=== PATIENT | female | born 1980 | race African-American/Black ===

== ENCOUNTER 2017-03-31 06:21 | Emergency (ER) | payer BC, OTHER ==
[2017-03-31 06:29] VITALS: BP 130/87
--- NOTE | 2017-03-31 06:55 | ER Document Report ---
ED Respiratory Problem - General Mode of Arrival: Ambulatory Information source: Patient TRAVEL OUTSIDE OF THE [place] IN LAST 30 DAYS: No - HPI Patient complains to provider of: Short of breath Associated symptoms: Other - See above <KARLEE TENA - Last Filed: 03/31/17 07:05> <ADA ARIAS - Last Filed: 03/31/17 09:25> - General Chief Complaint: Shortness Of Breath Stated Complaint: SHORTNESS OF BREATH Time Seen by Provider: 03/31/17 06:46 Notes: Patient is a 37 year old female, with a past medical history including asthma, who presents to the emergency department complaining of shortness of breath. Patient reports that she has had a cough and some congestion for the past 3 days and has felt increasing shortness of breath. Patient also complains of chest pressure and discomfort. Patient denies wheezing. Patient states she took a breathing treatment at 0500 this morning with no relief. Patient uses her inhaler and nebulizer at home and the Depo shot for control. (KARLEE TENA) - Related Data Allergies/Adverse Reactions: theophylline anhydrous [From Aramis-Dur] Allergy (Verified 06/10/15 13:33) Past Medical History - General Information source: Patient - Social History Smoking Status: Never Smoker Family History: Reviewed & Not Pertinent, DM, Hypertension, Other - Diabetes, CHF, Patient has suicidal ideation: No Patient has homicidal ideation: No Pulmonary Medical History: Reports: Hx Asthma Past Surgical History: Reports: Hx Urinary Tract Surgery - Immunizations Hx Diphtheria, Pertussis, Tetanus Vaccination: Yes <KARLEE TENA - Last Filed: 03/31/17 07:05> Review of Systems - Review of Systems Constitutional: No symptoms reported EENT: No symptoms reported Cardiovascular: See HPI, Chest pain Respiratory: See HPI, Cough, Short of breath, Other - congestion. denies: Wheezing Gastrointestinal: No symptoms reported Genitourinary: No symptoms reported Female Genitourinary: No symptoms reported Musculoskeletal: No symptoms reported Skin: No symptoms reported Hematologic/Lymphatic: No symptoms reported Neurological/Psychological: No symptoms reported -: Yes All other systems reviewed and negative <KARLEE TENA - Last Filed: 03/31/17 07:05> Physical Exam - Vital signs Interpretation: Tachycardic - General General appearance: Appears well, Alert - HEENT Head: Normocephalic, Atraumatic - Respiratory Chest status: Tender - Anterior chest wall tender to palpation, left worse than right Breath sounds: Normal Chest palpation: Normal - Cardiovascular Rhythm: Tachycardia Heart sounds: Normal auscultation Murmur: No - Back Back: Normal, Nontender - Extremities General upper extremity: Normal inspection General lower extremity: Normal inspection - Neurological Neuro grossly intact: Yes Cognition: Normal Orientation: AAOx4 [place] Coma Scale Eye Opening: Spontaneous [place] Coma Scale Verbal: Oriented Lori Coma Scale Motor: Obeys Commands Lori Coma Scale Total: 15 Speech: Normal - Psychological Associated symptoms: Normal affect, Normal mood - Skin Skin Temperature: Warm Skin Moisture: Dry Skin Color: Normal <KARLEE TENA - Last Filed: 03/31/17 07:05> <ADA ARIAS - Last Filed: 03/31/17 09:25> - Vital signs Vitals: Temp Pulse Resp BP Pulse Ox 98.3 F 118 H 18 130/87 H 99 03/31/17 06:25 03/31/17 06:25 03/31/17 06:25 03/31/17 06:25 03/31/17 06:25 Course <KARLEE TENA - Last Filed: 03/31/17 07:05> - Laboratory Result Diagrams: 03/31/17 07:49 03/31/17 07:49 - Diagnostic Test Radiology reviewed: Image reviewed, Reports reviewed - Chest x-ray is unremarkable - EKG Interpretation by Wi EKG shows normal: Sinus rhythm, [place], Intervals, QRS Complexes, ST-T Waves Rate: Tachycardia - 104 <ADA ARIAS - Last Filed: 03/31/17 09:25> - Re-evaluation Re-evalutation: 03/31/17 09:24 Does not appear to be short of breath at this time. She does have some nasal sinus congestion. She does report her cough is been keeping her from sleeping. She had been taking Tessalon Perles for her cough but ran out. She has not been on prednisone and quite some time for asthma. Her chest x-ray is normal. D-dimer is undetectable. White blood cell count is low with no suggestion of infection. She does have a low potassium and is advised to increase potassium intake. (ADA ARIAS) - Vital Signs Vital signs: Temp Pulse Resp BP Pulse Ox 98.3 F 118 H 18 130/87 H 99 03/31/17 06:25 03/31/17 06:25 03/31/17 06:25 03/31/17 06:25 03/31/17 06:25 - Laboratory Laboratory results interpreted by me: 03/31/17 07:49 Sodium 146.3 H Potassium 3.3 L Chloride 108 H BUN 6 L Discharge <KARLEE TENA - Last Filed: 03/31/17 07:05> <ADA ARIAS - Last Filed: 03/31/17 09:25> - Discharge Clinical Impression: Cough, Shortness of breath URI (upper respiratory infection) Qualifiers: URI type: unspecified viral URI Qualified Code(s): J06.9 - Acute upper respiratory infection, unspecified; B97.89 - Other viral agents as the cause of diseases classified elsewhere Condition: Stable Disposition: HOME, SELF-CARE Additional Instructions: Dyspnea, Nonspecific: You were evaluated for shortness of breath, or dyspnea. Dyspnea has many causes, and some are more serious than others. Sometimes it's impossible to diagnose the cause of dyspnea with the tests that are available on an emergency basis. Based on our evaluation today, you do not need hospitalization now. We found no evidence of pneumonia, collapsed lung, blood clots in the lung, tumors , or heart failure. Causes of non-specific dyspnea can include asthma or bronchospasm, hyperventilation, emotional distress, heart disease, emphysema, fibrosis of the lung, and stiffness of the chest wall. In healthy individuals with a single episode, it's sometimes reasonable to do nothing but wait to see if the problem occurs again. Additional tests used to evaluate dyspnea can include cardiac stress testing, echocardiography, pulmonary function testing, CAT scan of the chest, bronchoscopy or pulmonary biopsy. Return if shortness of breath persists or worsens, or if you develop chest pain, fever, cough, confusion, or fainting. Upper Respiratory Illness: You have a viral infection of the respiratory passages -- a "cold." This common infection causes nasal congestion, drainage, and often sore throat and cough. It is caused by a virus and is highly contagious. The disease usually lasts a week or more, though the worst symptoms are usually over in 3 or 4 days. There is no "cure" for the viral infection -- it must run its course. If there is a complication, such as bacterial infection in the nose, sinuses, middle ear, or bronchial tubes, antibiotics may be required, but antibiotics won 't affect the virus. If you smoke, you should STOP!! Drink plenty of fluids. A humidifier may help. An expectorant medication or decongestant may make you more comfortable. Use acetaminophen or ibuprofen for fever or aches. See the doctor if fever persists over two or three days, if there is any significant worsening of your symptoms, or if you simply fail to improve as expected. START THE PREDNISONE TOMORROW. TAKE THE TESSALON PERLES FOR COUGH NEEDED. DRINK PLENTY OF FLUIDS. INCREASE POTASSIUM IN YOUR DIET. GET PLENTY OF REST AND SLEEP. FOLLOW UP WITH YOUR DOCTOR IF NOT IMPROVING. RETURN TO THE EMERGENCY ROOM IF ANY NEW OR WORSENING SYMPTOMS. Prescriptions: Benzonatate [Tessalon Perles 100 mg Capsule] 100 mg PO Q8HP PRN #30 capsule PRN Reason: Prednisone [Deltasone 10 mg Tablet] 10 mg PO ASDIR PRN #21 tablet PRN Reason: Referrals: ERLIN SAAVEDRA MD [Primary Care Provider] - Follow up as needed Scribe Attestation: 03/31/17 09:24 I personally performed the services described in the documentation, reviewed and edited the documentation which was dictated to the scribe in my presence, and it accurately records my words and actions. (ADA ARIAS) Scribe Documentation - Scribe Written by Adilene:: adilene Anand, 03/31/17, 0711 acting as scribe for :: Alejandro <KARLEE TENA - Last Filed: 03/31/17 07:05>
--- NOTE | 2017-03-31 07:19 | RADIOLOGY REPORT (SQ) ---
EXAM DESCRIPTION: CHEST PA/LAT COMPLETED DATE/TIME: 03/31/2017 7:07 am REASON FOR STUDY: SOB, tachycardic COMPARISON: 4.18.13 EXAM PARAMETERS: NUMBER OF VIEWS: two views TECHNIQUE: Digital Frontal and Lateral radiographic views of the chest acquired. RADIATION DOSE: NA LIMITATIONS: none FINDINGS: LUNGS AND PLEURA: No opacities, masses or pneumothorax. No pleural effusion. MEDIASTINUM AND HILAR STRUCTURES: No masses or contour abnormalities. HEART AND VASCULAR STRUCTURES: Heart normal size. No evidence for failure. BONES: No acute findings. HARDWARE: None in the chest. OTHER: No other significant finding. IMPRESSION: NO SIGNIFICANT RADIOGRAPHIC FINDING IN THE CHEST. TECHNICAL DOCUMENTATION: JOB ID: [id number] [email or web address]- All Rights Reserved
[2017-03-31 07:59] LABS: ABSOLUTE EOSINOPHILS # (AUTO) 0.1 10^3/uL (0.0-0.6); ABSOLUTE LYMPHOCYTES (AUTO) 1.8 10^3/uL (0.5-4.7); ABSOLUTE MONOCYTES (AUTO) 0.4 10^3/uL (0.1-1.4); ABSOLUTE NEUT (AUTO) 3.9 10^3/uL (1.7-8.2); BASOPHILS % (AUTO) 0.7 % (0-2); EOSINOPHILS % (AUTO) 1.7 % (0-6); HEMATOCRIT 42.2 % (36.0-47.0); HEMOGLOBIN 14.2 g/dL (12.0-15.5); HGB HCT DIFFERENCE 0.4; MEAN CORPUSCULAR HGB CONC 33.7 g/dL (32.0-36.0); MEAN CORPUSCULAR VOLUME 89 fl (80-97); MONOCYTES % (AUTO) 6.8 % (3-13); RED BLOOD COUNT 4.73 10^6/uL (3.72-5.28); RED CELL DISTRIBUTION WIDTH 13.5 % (11.5-14.0); SEGMENTED NEUTROPHILS % (AUTO) 61.8 % (42-78); WHITE BLOOD COUNT 6.3 10^3/uL (4.0-10.5)
[2017-03-31 08:13] LABS: ALANINE AMINOTRANSFERASE 37 U/L (9-52); ALBUMIN 4.4 g/dL (3.5-5.0); ALKALINE PHOSPHATASE 89 U/L (38-126); ANION GAP 13 (5-19); ASPARTATE AMINO TRANSFERASE 14 U/L (14-36); BILIRUBIN,DIRECT 0.3 mg/dL (0.0-0.4); BILIRUBIN,TOTAL 0.6 mg/dL (0.2-1.3); BLOOD UREA NITROGEN 6 mg/dL (7-20); CALCIUM 9.8 mg/dL (8.4-10.2); CARBON DIOXIDE 25 mmol/L (22-30); CHLORIDE 108 mmol/L (98-107); CREATINE KINASE 86 U/L (30-135); CREATININE RESULT 0.66 mg/dL (0.52-1.25); GLUCOSE 110 mg/dL (75-110); POTASSIUM 3.3 mmol/L (3.6-5.0); SODIUM 146.3 mmol/L (137-145); TOTAL PROTEIN 7.3 g/dL (6.3-8.2)
--- NOTE | 2017-03-31 08:19 | EKG REPORT ---
SEVERITY:- OTHERWISE NORMAL ECG - SINUS TACHYCARDIA : Confirmed by: Amrit Mtz MD 31-Mar-2017 08:18:22
[2017-03-31 08:26] LABS: CREATINE KINASE MB < 0.22 ng/mL (<4.55); TROPONIN I < 0.012 ng/mL
[2017-03-31] MEDS ORDERED: PREDNISONE 20 MG TABLET PO ONE (09:19)
== END 2017-03-31 09:36 | disposition home or self-care (01) ==
LOC: ER 06:21
DX: J06.9 Acute upper respiratory infection, unspecified (principal); B97.89 Other viral agents as the cause of diseases classified elsewhere; R06.02 Shortness of breath; R05 Cough
CPT/HCPCS: 93005; 99284; 36415; 82553; 82550; 85025; 80053; 84484; 85379; 83880; 71020; 93010; J7512

== ENCOUNTER 2018-06-13 07:27 | Observation (INO) | payer OTHER ==
[2018-06-13] MEDS ORDERED: ASPIRIN 81 MG TABLET, CHEWABLE PO ONE (07:48)
--- NOTE | 2018-06-13 08:26 | ER Document Report ---
ED Cardiac - General Chief Complaint: Chest Pain Stated Complaint: CHEST PAIN Time Seen by Provider: 06/13/18 08:13 Notes: 38-year-old female. History of hypertension just started medicine (HCTZ) who developed chest pain last night while at work. 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 Her vital signs were checked and was told everything looked normal but if the symptoms persisted she was instructed to get evaluated today. Was having some centralized chest pain when she presented to the ER. Denies any shortness of breath. Denies any significant anxiety. Denies any pain or swelling in her calves. No prior history of DVT or PE. TRAVEL OUTSIDE OF THE [place] IN LAST 30 DAYS: No - HPI Patient complains to provider of: Chest pain, Chest tightness Use of: denies: Alcohol, Amphetamines, Bath salts, Caffeine, Cocaine, Decongestants, Other Was the onset of pain: Gradual Chest pain location: Substernal Quality of pain: Intermittent, Mild - Related Data Allergies/Adverse Reactions: theophylline anhydrous [From Aramis-Dur] Allergy (Verified 06/13/18 07:31) Past Medical History - General Information source: Patient - Social History Smoking Status: Never Smoker Cigarette use (# per day): No Frequency of alcohol use: None Drug Abuse: None Lives with: Family Family History: DM, Hypertension, Other - Diabetes, CHF, - Medical History Medical History: Other - Hypertension Pulmonary Medical History: Reports: Hx Asthma Renal/ Medical History: Denies: Hx Peritoneal Dialysis Past Surgical History: Reports: Hx Urinary Tract Surgery - Immunizations Hx Diphtheria, Pertussis, Tetanus Vaccination: Yes Review of Systems - Review of Systems Notes: Constitutional: denies: Chills, Diaphoresis, Fever, Malaise, Weakness EENT: denies: Eye discharge, Blurred vision, Tearing, Double vision, Nose congestion, Nose discharge, Throat swelling, Mouth pain Cardiovascular: denies: Palpitations, Heart racing, Orthopnea, Dyspnea, positive for the following: Chest pain Respiratory: denies: Cough, Hurts to breathe, Wheezing, Shortness of breath Gastrointestinal: denies: Abdominal pain, Diarrhea, Nausea, Vomiting, Black stools, bright red blood in stool Genitourinary: denies: Burning, Dysuria, Discharge, Frequency, Flank pain, Hematuria Musculoskeletal: denies: Joint pain, Joint swelling, Muscle pain, Muscle stiffness, back pain Hematologic/Lymphatic: denies: Anemia, Easy bleeding, Easy bruising, Blood clots Neurological/Psychological: denies: Confusion, Dementia, Depression, Loss of consciousness Skin: No lesions, no masses, no skin breakdown, no abscesses Physical Exam - Vital signs Vitals: Temp Pulse Resp BP Pulse Ox 98.8 F 84 18 130/77 H 97 06/13/18 07:39 06/13/18 07:39 06/13/18 07:39 06/13/18 07:39 06/13/18 07:39 Interpretation: Normal - General General appearance: Appears well, Alert - HEENT Head: Normocephalic, Atraumatic Eyes: Normal Pupils: PERRL - Respiratory Respiratory status: No respiratory distress Chest status: Nontender Breath sounds: Normal Chest palpation: Normal - Cardiovascular Rhythm: Regular Heart sounds: Normal auscultation Murmur: No - Abdominal Inspection: Normal Distension: No distension Bowel sounds: Normal Tenderness: Nontender Organomegaly: No organomegaly - Back Back: Normal, Nontender - Extremities General upper extremity: Normal inspection, Nontender, Normal color, Normal ROM , Normal temperature General lower extremity: Normal inspection, Nontender, Normal color, Normal ROM , Normal temperature, Normal weight bearing. No: Crystal's sign - Neurological Neuro grossly intact: Yes Cognition: Normal Orientation: AAOx4 [place]ori Coma Scale Eye Opening: Spontaneous Lori Coma Scale Verbal: Oriented [place] Coma Scale Motor: Obeys Commands [place] Coma Scale Total: 15 Speech: Normal Motor strength normal: LUE, RUE, LLE, RLE Sensory: Normal - Psychological Associated symptoms: Normal affect, Normal mood - Skin Skin Temperature: Warm Skin Moisture: Dry Skin Color: Normal Course - Re-evaluation Re-evalutation: 06/13/18 10:24 This is a well-appearing pleasant obese -Beninese female in no acute distress. First set of labs unremarkable. D-dimer negative. Not in significant distress. Patient does have a family history is positive for heart disease. Recent diagnosis of "LVH". Will see about admitting her for observation for chest pain rule out. - Vital Signs Vital signs: Temp Pulse Resp BP Pulse Ox 98.8 F 84 12 123/75 99 06/13/18 07:39 06/13/18 07:39 06/13/18 10:01 06/13/18 10:00 06/13/18 10:01 - Laboratory Result Diagrams: 06/13/18 08:10 06/13/18 08:10 Laboratory results interpreted by me: 06/13/18 06/13/18 08:10 08:10 Seg Neutrophils % 41.3 L Lymphocytes % 50.5 H Potassium 3.4 L AST 12 L - EKG Interpretation by Me EKG shows normal: Sinus rhythm, [place], Intervals, QRS Complexes, ST-T Waves Discharge - Discharge Clinical Impression: Chest pain Qualifiers: Chest pain type: unspecified Qualified Code(s): R07.9 - Chest pain, unspecified Condition: Good Disposition: ADMITTED OBSERVATION Admitting Provider: Hospitalist - [facility] Admitted: Telemetry Referrals: ERLIN SAAVEDRA MD [Primary Care Provider] - Follow up as needed
[2018-06-13 08:28] LABS: ABSOLUTE EOSINOPHILS # (AUTO) 0.1 10^3/uL (0.0-0.6); ABSOLUTE LYMPHOCYTES (AUTO) 3.1 10^3/uL (0.5-4.7); ABSOLUTE MONOCYTES (AUTO) 0.4 10^3/uL (0.1-1.4); ABSOLUTE NEUT (AUTO) 2.5 10^3/uL (1.7-8.2); BASOPHILS % (AUTO) 0.8 % (0-2); EOSINOPHILS % (AUTO) 1.6 % (0-6); HEMOGLOBIN 13.8 g/dL (12.0-15.5); LYMPHOCYTES % (AUTO) 50.5 % (13-45); MEAN CORPUSCULAR HEMOGLOBIN 29.5 pg (27.0-33.4); MEAN CORPUSCULAR HGB CONC 33.7 g/dL (32.0-36.0); MEAN CORPUSCULAR VOLUME 88 fl (80-97); MONOCYTES % (AUTO) 5.8 % (3-13); PLATELET COUNT 365 10^3/uL (150-450); RED BLOOD COUNT 4.68 10^6/uL (3.72-5.28); RED CELL DISTRIBUTION WIDTH 12.8 % (11.5-14.0); SEGMENTED NEUTROPHILS % (AUTO) 41.3 % (42-78); TOTAL CELLS COUNTED % (AUTO) 100 %
--- NOTE | 2018-06-13 08:29 | RADIOLOGY REPORT (SQ) ---
EXAM DESCRIPTION: CHEST SINGLE VIEW COMPLETED DATE/TIME: 06/13/2018 8:21 am REASON FOR STUDY: chest pressure COMPARISON: 03/31/2017 EXAM PARAMETERS: NUMBER OF VIEWS: One view. TECHNIQUE: Single frontal radiographic view of the chest acquired. RADIATION DOSE: NA LIMITATIONS: None. FINDINGS: LUNGS AND PLEURA: No opacities, masses or pneumothorax. No pleural effusion. MEDIASTINUM AND HILAR STRUCTURES: No masses. Contour normal. HEART AND VASCULAR STRUCTURES: Stable mild cardiomegaly BONES: No acute findings. HARDWARE: None in the chest. OTHER: No other significant finding. IMPRESSION: NO ACUTE RADIOGRAPHIC FINDING IN THE CHEST. TECHNICAL DOCUMENTATION: JOB ID: [id number] [employer]- All Rights Reserved Reading location - IP/workstation name: [email or web address]
[2018-06-13 08:41] LABS: ALANINE AMINOTRANSFERASE 30 U/L (9-52); ALBUMIN 4.1 g/dL (3.5-5.0); ALKALINE PHOSPHATASE 89 U/L (38-126); ANION GAP 11 (5-19); ASPARTATE AMINO TRANSFERASE 12 U/L (14-36); BILIRUBIN,DIRECT 0.2 mg/dL (0.0-0.4); BILIRUBIN,TOTAL 0.3 mg/dL (0.2-1.3); BLOOD UREA NITROGEN 9 mg/dL (7-20); CALCIUM 9.3 mg/dL (8.4-10.2); CARBON DIOXIDE 26 mmol/L (22-30); CHLORIDE 107 mmol/L (98-107); CREATINE KINASE 94 U/L (30-135); GLUCOSE 86 mg/dL (75-110); POTASSIUM 3.4 mmol/L (3.6-5.0); SODIUM 143.9 mmol/L (137-145); TOTAL PROTEIN 6.9 g/dL (6.3-8.2)
[2018-06-13 08:53] LABS: CREATINE KINASE MB < 0.22 ng/mL (<4.55); TROPONIN I < 0.012 ng/mL
[2018-06-13] MEDS ORDERED: NITROGLYCERIN 0.4 MG/TAB 25 TAB/BOTTLE SL PRN (11:11)
--- NOTE | 2018-06-13 11:28 | EKG REPORT ---
SEVERITY:- BORDERLINE ECG - SINUS RHYTHM BORDERLINE T ABNORMALITIES, INFERIOR LEADS : Confirmed by: Katy Huber MD 13-Jun-2018 11:27:38
[2018-06-13 11:48] LABS: URINE AMPHETAMINES SCREEN NEGATIVE; URINE BARBITURATES SCREEN NEGATIVE; URINE BENZODIAZEPINES SCREEN NEGATIVE; URINE COCAINE SCREEN NEGATIVE; URINE MARIJUANA (THC) SCREEN UNCONFIRMED POSITIVE; URINE METHADONE SCREEN NEGATIVE; URINE PHENCYCLIDINE SCREEN NEGATIVE
[2018-06-13] MEDS ORDERED: DEXTROSE 40% GEL 15 GM TUBE PO PRN ×2 (15:01)
[2018-06-13] MEDS ORDERED: GLUCAGON,HUMAN RECOMB 1 MG INJ SUBCUT PRN (15:01)
[2018-06-13] MEDS ORDERED: DEXTROSE 50%-WATER 25 GM/50 ML DISP.SYRIN IV PRN ×2 (15:01)
--- NOTE | 2018-06-13 16:40 | PDOC H&P ---
History of Present Illness Admission Date/PCP: ERLIN SAAVEDRA MD Patient complains of: CHEST PAIN AND PALPITATION. History of Present Illness: LEONEL TIJERINA is a 38 year old female brought to the ER with complaints of 4 out of 10, nonradiating, midsternal chest pain that started past 2 days and worse last night. Patient then decided to have this evaluated as patient was having the symptoms overall for the past 2 days. Patient states that she was at work past 2 days and had been having palpitations. Patient states when she decided to come to the emergency room and she drove herself her chest pain was again midsternal nonradiating 4 out of 10. The max the chest pain has been as a 4 out of 10 it is intermittent. Chest pain description per patient patient denies any nausea vomiting coughing orthopnea shortness of breath dyspnea on exertion. Patient does have a long recent trip where she drove herself to [place] which is about 6 hours to and fro. However d-dimer is negative. Patient states that she recently found out through her primary that she has hypertension and was started on hydrochlorothiazide. Patient also had an echocardiogram done which showed she has left ventricular hypertrophy. Patient also had a recent sleep study which shows that she has sleep apnea and currently is awaiting a CPAP titration study for settings for CPAP. Patient currently denies any chest pain shortness of breath headache blurred vision nausea vomiting or any acute complaints. Patient has neck swelling in the thyroid area and thyroid gland feels firm and enlarged will go ahead and proceed with ultrasound of the thyroid gland. Past Medical History Cardiac Medical History: Reports: Hypertension - Diastolic, Other Cardiac History Note: Left ventricular hypertrophy. Obstructive sleep apnea. Morbid obesity. Hypertension. Pulmonary Medical History: Reports: Asthma EENT Medical History: Denies: None Neurological Medical History: Denies: None Endocrine Medical History: Denies: Diabetes Mellitus Type 2 GI Medical History: Reports: None Musculoskeltal Medical History: Reports: None Social History Lives with: Family Smoking Status: Never Smoker Frequency of Alcohol Use: None Drugs: None Family History Family History: DM, Hypertension, Other - Diabetes, CHF, Parental Family History Reviewed: Yes Children Family History Reviewed: NA Sibling(s) Family History Reviewed.: NA Medication/Allergy Home Medications: Albuterol Sulfate [Proair Hfa Inhalation Aerosol 8.5 gm Mdi] 1 puff IH Q4 PRN Gabapentin [Neurontin 300 mg Capsule] 300 mg PO QHS 06/13/18 Hydrochlorothiazide 12.5 mg PO DAILY 06/13/18 Allergies/Adverse Reactions: theophylline anhydrous [From Aramis-Dur] Allergy (Verified 06/13/18 07:31) Physical Exam Vital Signs: Temp Pulse Resp BP Pulse Ox 98.8 F 84 12 123/75 99 06/13/18 07:39 06/13/18 07:39 06/13/18 10:01 06/13/18 10:00 06/13/18 10:01 Intake & Output 06/12/18 06/13/18 06/14/18 06:59 06:59 06:59 Weight 231 lb 14.821 oz General appearance: PRESENT: no acute distress, cooperative, morbidly obese Eye exam: PRESENT: EOMI. ABSENT: nystagmus Ear exam: PRESENT: normal external ear exam Neck exam: PRESENT: lymphadenopathy, thyromegaly. ABSENT: carotid bruit, JVD Respiratory exam: PRESENT: clear to auscultation [place]. ABSENT: accessory muscle use, wheezes Cardiovascular exam: PRESENT: RRR Pulses: PRESENT: normal carotid pulses GI/Abdominal exam: PRESENT: soft. ABSENT: distended, guarding, mass, tenderness Rectal exam: PRESENT: deferred Neurological exam: PRESENT: alert, awake, oriented to person, oriented to place , oriented to time, oriented to situation, CN II-XII grossly intact Results Laboratory Results: 06/13/18 08:10 06/13/18 08:10 06/13/18 06/13/18 06/13/18 08:10 08:10 08:10 WBC 6.0 RBC 4.68 Hgb 13.8 Hct 41.0 MCV 88 MCH 29.5 MCHC 33.7 RDW 12.8 Plt Count 365 Seg Neutrophils % 41.3 L Lymphocytes % 50.5 H Monocytes % 5.8 Eosinophils % 1.6 Basophils % 0.8 Absolute Neutrophils 2.5 Absolute Lymphocytes 3.1 Absolute Monocytes 0.4 Absolute Eosinophils 0.1 Absolute Basophils 0.0 Sodium 143.9 Potassium 3.4 L Chloride 107 Carbon Dioxide 26 Anion Gap 11 BUN 9 Creatinine 0.68 Est GFR ( Amer) > 60 Est GFR (Non-Af Amer) > 60 Glucose 86 Calcium 9.3 Total Bilirubin 0.3 AST 12 L ALT 30 Alkaline Phosphatase 89 Total Protein 6.9 Albumin 4.1 Serum HCG, Qual NEGATIVE 06/13/18 06/13/18 06/13/18 08:10 08:10 08:10 Creatine Kinase 94 CK-MB (CK-2) < 0.22 Troponin I < 0.012 NT-Pro-B Natriuret Pep 36 Impressions: Chest X-Ray 06/13/18 07:48 IMPRESSION: NO ACUTE RADIOGRAPHIC FINDING IN THE CHEST. Assessment & Plan - Diagnosis (1) Chest pain Qualifiers: Chest pain type: unspecified Qualified Code(s): R07.9 - Chest pain, unspecified Is this a current diagnosis for this admission?: Yes Plan: Suspect chest pain etiology to poorly controlled hypertension and LVH. Patient is at high risk for coronary artery disease related chest pain we will therefore Schedule patient for nuclear stress test. We will also obtain records for her echocardiogram that was done by her primary care identifying her LVH. Patient continued on aspirin, statin, beta blockers when blood pressure allows we will cycle cardiac enzymes. EKG shows nonspecific T-wave changes in lead III otherwise negative. Cardiac enzymes are negative so far. Vitals are stable. (2) HTN (hypertension) Qualifiers: Hypertension type: essential hypertension Qualified Code(s): I10 - Essential (primary) hypertension Is this a current diagnosis for this admission?: Yes Plan: Aggressive blood pressure control. Comprehensive blood work. Restart medications as necessary. (3) LVH (left ventricular hypertrophy) Is this a current diagnosis for this admission?: Yes Plan: Attribute to poorly controlled primary hypertension however patient is also has obstructive sleep apnea. (4) Morbid obesity with BMI of 40.0-44.9, adult Is this a current diagnosis for this admission?: Yes Plan: Patient will be provided a nutrition consult. Patient states she has already made dietary modifications and lifestyle modifications. Patient is very receptive for improving her health and lifestyle. (5) Thyromegaly Is this a current diagnosis for this admission?: Yes Plan: Thyroid ultrasound. (6) Heart palpitations Is this a current diagnosis for this admission?: Yes Plan: TFTs today. - Time Critical Time spent with patient: 15-24 minutes Anticipated discharge: Home Within: within 24 hours
--- NOTE | 2018-06-13 21:10 | RADIOLOGY REPORT (SQ) ---
EXAM DESCRIPTION: U/S THYROID/SFT TISS HD NECK COMPLETED DATE/TIME: 06/13/2018 8:46 pm REASON FOR STUDY: thyromegaly/ COMPARISON: None. TECHNIQUE: Dynamic and static go-scale images acquired of the thyroid gland. Selected additional c olor/power Doppler images recorded. All images stored to PACS. LIMITATIONS: None. FINDINGS: RIGHT LOBE: Normal size, 3.9 x 1 x 1.4 cm. Homogeneous echotexture. No cystic or solid m asses. LEFT LOBE: Normal size, 3.6 x 1.4 x 1.4 cm. Homogeneous echotexture. No cystic or solid masses. ISTHMUS: Normal size. 4 mm. Homogeneous echotexture. No cystic or solid masses. OTHER: No other significant finding. IMPRESSION: NORMAL THYROID ULTRASOUND. TECHNICAL DOCUMENTATION: JOB ID: [id number] [employer]- All Rights Reserved Reading location - IP/workstation name: [email or web address]
[2018-06-13] MEDS: ATORVASTATIN CALCIUM 40 MG TABLET PO SCH (21:23)
[2018-06-13] MEDS: GABAPENTIN 300 MG CAPSULE PO SCH (21:58)
[2018-06-14 07:07] LABS: ALANINE AMINOTRANSFERASE 26 U/L (9-52); ALBUMIN 3.7 g/dL (3.5-5.0); ALKALINE PHOSPHATASE 83 U/L (38-126); ANION GAP 11 (5-19); ASPARTATE AMINO TRANSFERASE 13 U/L (14-36); BILIRUBIN,DIRECT 0.2 mg/dL (0.0-0.4); BILIRUBIN,TOTAL 0.5 mg/dL (0.2-1.3); BLOOD UREA NITROGEN 8 mg/dL (7-20); CALCIUM 9.2 mg/dL (8.4-10.2); CARBON DIOXIDE 22 mmol/L (22-30); CHLORIDE 111 mmol/L (98-107); CHOLESTEROL 162.67 mg/dL (0-200); GLUCOSE 90 mg/dL (75-110); PHOSPHORUS 3.6 mg/dL (2.5-4.5); POTASSIUM 3.8 mmol/L (3.6-5.0); SODIUM 143.5 mmol/L (137-145); TOTAL PROTEIN 6.6 g/dL (6.3-8.2); TRIGLYCERIDES 84 mg/dL (<150)
[2018-06-14 07:18] LABS: DIRECT LDL 98 mg/dL (<100)
[2018-06-14 07:25] LABS: ABSOLUTE BASOPHILS # (AUTO) 0.1 10^3/uL (0.0-0.2); ABSOLUTE EOSINOPHILS # (AUTO) 0.1 10^3/uL (0.0-0.6); ABSOLUTE LYMPHOCYTES (AUTO) 2.4 10^3/uL (0.5-4.7); ABSOLUTE MONOCYTES (AUTO) 0.3 10^3/uL (0.1-1.4); ABSOLUTE NEUT (AUTO) 2.8 10^3/uL (1.7-8.2); BASOPHILS % (AUTO) 0.9 % (0-2); EOSINOPHILS % (AUTO) 1.8 % (0-6); HEMATOCRIT 39.3 % (36.0-47.0); HEMOGLOBIN 13.4 g/dL (12.0-15.5); LYMPHOCYTES % (AUTO) 42.2 % (13-45); MEAN CORPUSCULAR HEMOGLOBIN 29.8 pg (27.0-33.4); MEAN CORPUSCULAR HGB CONC 34.1 g/dL (32.0-36.0); MEAN CORPUSCULAR VOLUME 88 fl (80-97); MONOCYTES % (AUTO) 6.1 % (3-13); PLATELET COUNT 325 10^3/uL (150-450); RED BLOOD COUNT 4.49 10^6/uL (3.72-5.28); TOTAL CELLS COUNTED % (AUTO) 100 %; WHITE BLOOD COUNT 5.6 10^3/uL (4.0-10.5)
[2018-06-14] MEDS: ASPIRIN 325 MG TABLET, ENT COATED PO SCH (11:12)
--- NOTE | 2018-06-14 11:33 | EKG REPORT ---
SEVERITY:- NORMAL ECG - SINUS RHYTHM : Confirmed by: Katy Huber MD 14-Jun-2018 11:33:13
[2018-06-14] MEDS ORDERED: CAFFEINE CITRATED INJ/PF 60 MG/3 ML SDV ONE (13:49)
[2018-06-14] MEDS ORDERED: REGADENOSON INJ 0.4 MG/5 ML DISP.SYRIN IV ONE (13:49)
[2018-06-14 14:44] LABS: C-REACTIVE PROTEIN 11.4 mg/L (<10.0); LIPASE 197.8 U/L (23-300)
[2018-06-14] MEDS: PANTOPRAZOLE SODIUM 40 MG VIAL IV SCH ×2 (15:07→17:28)
[2018-06-14] MEDS: SUCRALFATE SUSP 1 GM/10 ML UDCUP PO SCH ×2 (15:07→17:37)
[2018-06-14] MEDS ORDERED: ALBUTEROL SULFATE 0.083% NEB 2.5 MG/3 ML AMPUL NEB ONE (16:15)
[2018-06-14] MEDS ORDERED: ACETAMINOPHEN 325 MG TABLET PO PRN (16:22)
[2018-06-14] MEDS ORDERED: ACETAMINOPHEN 325 MG TABLET PO ONE (16:30)
[2018-06-14] MEDS: ALBUTEROL SULFATE 0.083% NEB 2.5 MG/3 ML AMPUL NEB SCH (19:15)
[2018-06-14] MEDS ORDERED: ALBUTEROL SULFATE 0.083% NEB 2.5 MG/3 ML AMPUL NEB SCH (20:00)
[2018-06-14] MEDS ORDERED: ALBUTEROL SULFATE 0.042% NEB (1.25 MG/3 ML) AMPUL NEB SCH (20:00)
--- NOTE | 2018-06-14 20:01 | DRAGON STRESS TEST REPORT ---
INTRAVENOUS LEXISCAN CARDIOLITE STRESS TEST USING SINGLE PHOTON EMMISION COMPUTERIZED TOMOGRAPHIC. DATE OF PROCEDURE: June 14, 2018, INDICATION : Chest pain CARDIAC RISK FACTORS: Hypertension, dyslipidemia RESTING EKG: Sinus rhythm, no baseline ST-T wave changes noted STRESS EKG: No significant ST segment changes noted with LexiScan bolus REASON FOR TERMINATION: Protocol. PROCEDURE REPORT: Baseline heart rate 75 beats per minute with blood pressure of 112/59. Patient had no significant complaints. Patient was bolused with Lexiscan 0.4 mg intravenously followed by saline bolus. Heart rate at 2 minutes post bolus 114 with a blood pressure of 120/61. 3 minutes post bolus heart rate 100 with blood pressure of 118/60. No significant EKG changes were noted. Patient had no significant complaints during the procedure or postprocedure. CONCLUSIONS: Normal EKG and hemodynamic response to IV LexiScan. NUCLEAR DATA: At rest the patient was given 15.75 millicuries of technetium 99 sestamibi injected intravenously. As per protocol rest gated SPECT images were obtained. On day of stress test, the patient was given intravenous LexiScan at a dose of 0.4 mg in 5 mL intravenously, followed by flush with normal saline. Subsequently the stress dose of 47.7 millicuries of technetium 99 sestamibi was injected intravenously. As per protocol stress gated images were obtained. NUCLEAR INTERPRETATION: Both raw and processed data were used for interpretation. Visual, qualitative, computer-generated quantitative data was used. There was good myocardial uptake of technetium compound. Motion artifact and soft tissue attenuations were noted. Increased visceral uptake was noted. No definitive areas of transient perfusion defect noted, except for borderline decreased uptake in the mid anterior wall felt to be related to differences in breast attenuation. Overall SDS was 1 therefore not significant , No definitive areas of fixed perfusion defect or scars noted. EKG gated imaging showed LV EF at 64 %, rest and stress gated EF similar visually. T. I D. ratio was 0.79. Lung heart ratio noted to be within normal limits 0.32. No significant extracardiac and abnormal radiotracer activities were noted. RV free wall uptake was noted to be WNL. IMPRESSION: Also refer to comments under nuclear interpretation. Also test results needs to be interpreted in the context of pretest probability. 1. No definitive areas of transient perfusion defect noted. 2. There is no definitive scintigraphic evidence of myocardial infarction/scar. 3. EKG gated imaging shows left ventricular ejection fraction of approx. 64 %. 4. Clinical correlation requested as occasionally single vessel disease or balanced ischemia could be missed. In approximately 10% of the cases Lexiscan may not cause adequate vasodilatory stress. RECOMMENDATIONS: Aggressive risk factor modification and medical management. Further evaluation may be needed if continued symptoms or other high risk indicators are noted on clinical evaluation. Close cardiology follow-up is also recommended. Clinical correlation with echocardiogram derived ejection fraction. Inability to exercise by itself can lead to increased cardiovascular event risks. Consider cardiology consultation and or follow-up if clinically indicated. I am available for cardiology evaluation and consultation if requested by the oral pathologist, unless patient already has a truckman. Dr. Rabia Espinoza. MRCP Board certified in cardiology and sleep medicine. Board certified in nuclear cardiology, adult echocardiography. MAXI
[2018-06-14] MEDS: GABAPENTIN 300 MG CAPSULE PO SCH (21:32)
[2018-06-14] MEDS: ATORVASTATIN CALCIUM 40 MG TABLET PO SCH (21:32)
--- NOTE | 2018-06-14 21:57 | RADIOLOGY REPORT (SQ) ---
EXAM DESCRIPTION: CTA CHEST COMPLETED DATE/TIME: 06/14/2018 8:29 pm REASON FOR STUDY: R/O PE and eval chest pain COMPARISON: Chest x-ray dated 06/13/2018. TECHNIQUE: CT scan of the chest performed using helical scanning technique with dynamic intravenous contrast injection. Images reviewed with lung, soft tissue and bone windows. Reconstructed coronal and sagittal MPR images reviewed. Additional 3 dimensional post-processing performed to develop Maximal Intensity Projection images (PR P). All images stored on PACS. All CT scanners at this facility use dose modulation, iterative reconstruction, and/or weight based d osing when appropriate to reduce radiation dose to as low as reasonably achievable (ALARA). [facility]: Dose Right [facility]: CareDose [facility]: Dose Right [facility]: Teradose 4D [facility]: ShopText CONTRAST TYPE AND DOSE: contrast/concentration: Isovue 350.00 mg/ml; Total Contrast Delivered: 79.0 ml; Total Saline Delivered: 80.0 ml Contrast bolus adequate for pulmonary arteries and aorta. RENAL FUNCTION: BUN 8 creatinine 0.61. RADIATION DOSE: CT Rad equipment meets quality standard of care and radiation dose reduction techniq ues were employed. CTDIvol: 6.6 - 30.9 mGy. DLP: 1133 mGy-cm. . LIMITATIONS: None. FINDINGS: LUNGS AND PLEURA: No masses, infiltrates, or pneumothorax. No pleural effusions or pleura l calcifications. AORTA AND GREAT VESSELS: No aneurysm. No dissection. HEART: No pericardial effusion. No significant coronary artery calcifications. PULMONARY ARTERIES: No emboli visualized in the main pulmonary arteries or the segmental branches. HILAR AND MEDIASTINAL STRUCTURES: No identified masses or abnormal nodes. HARDWARE: None in the chest. UPPER ABDOMEN: No significant findings. Limited exam. THYROID AND OTHER SOFT TISSUES: No masses. No adenopathy. BONES: No acute or significant finding. 3D MIPS: Confirm above findings. OTHER: No other significant finding. IMPRESSION: NORMAL CTA OF THE CHEST. NO PULMONARY EMBOLI. COMMENT: Quality ID # [id number]: Final reports with documentation of one or more dose reduction techniques (e.g., Automated exposure control, adjustment of the mA and/or kV according to patient size, use of iterative reconstruction technique) TECHNICAL DOCUMENTATION: JOB ID: [id number] [employer]- All Rights Reserved Reading location - IP/workstation name: [email or web address]
--- NOTE | 2018-06-14 23:23 | PDOC CONSULTATION ---
Consultation Consult Date: 06/14/18 Attending physician:: VALARIE LARA Consult reason:: CP History of Present Illness Admission Date/PCP: 06/13/18 10:51 ERLIN SAAVEDRA MD Patient complains of: Chest pain History of Present Illness: LEONEL TIJERINA is a 38 year old female brought to the ER with complaints of 4 out of 10, nonradiating, midsternal chest pain that started past 2 days and worse last night. Patient then decided to have this evaluated as patient was having the symptoms overall for the past 2 days. Patient states that she was at work past 2 days and had been having palpitations. Patient states when she decided to come to the emergency room and she drove herself her chest pain was again midsternal nonradiating 4 out of 10. The max the chest pain has been as a 4 out of 10 it is intermittent. Chest pain description per patient patient denies any nausea vomiting coughing orthopnea shortness of breath dyspnea on exertion. Patient does have a long recent trip where she drove herself to [place] which is about 6 hours to and fro. However d-dimer is negative. Patient states that she recently found out through her primary that she has hypertension and was started on hydrochlorothiazide. Patient also had an echocardiogram done which showed she has left ventricular hypertrophy. Patient also had a recent sleep study which shows that she has sleep apnea and currently is awaiting a CPAP titration study for settings for CPAP. Patient currently denies any chest pain shortness of breath headache blurred vision nausea vomiting or any acute complaints. Patient has neck swelling in the thyroid area and thyroid gland feels firm and enlarged will go ahead and proceed with ultrasound of the thyroid gland. This history obtained by the hospitalist was reviewed and confirmed with the patient. Patient denied any exertional component to the chest pain. She denied any prior history of myocardial infarction, angina but claims to have LVH. Past Medical History Cardiac Medical History: Reports: Hypertension - Diastolic, Other Pulmonary Medical History: Reports: Asthma EENT Medical History: Denies: None Neurological Medical History: Denies: None Endocrine Medical History: Denies: Diabetes Mellitus Type 2 GI Medical History: Reports: None Musculoskeltal Medical History: Reports: None Social History Information Source: Patient Lives with: Family Smoking Status: Never Smoker Frequency of Alcohol Use: None Hx Recreational Drug Use: No Drugs: None Hx Prescription Drug Abuse: No - Advance Directive Resuscitation Status: Full Code Family History Family History: DM, Hypertension, Other - Diabetes, CHF, Parental Family History Reviewed: Yes Children Family History Reviewed: Yes Sibling(s) Family History Reviewed.: Yes Medication/Allergy Home Medications: Gabapentin [Neurontin 300 mg Capsule] 300 mg PO QHS 06/13/18 Hydrochlorothiazide 12.5 mg PO DAILY 06/13/18 Albuterol Sulfate [Proair HFA Inhalation Aerosol 8.5 gm MDI] 1 puff IH Q4 PRN # 1 [email or web address] 06/15/18 Albuterol Sulfate [Ventolin 0.083% Neb 2.5 mg/3 mL Ampul] 2.5 mg NEB RTQ6 #120 vial.neb 06/15/18 Allergies/Adverse Reactions: theophylline anhydrous [From Aramis-Dur] Allergy (Verified 06/13/18 07:31) Review of Systems Review of Systems: Please see history of present illness and past medical history as wall. Constitutional: No fever or chills reported. Head : No recent chronic headaches, recent head injury. Eyes: No recent eye pain, diplopia, redness, discharge, acute visual changes. Ears: No recent chronic ear pain, acute hearing loss, ear discharge. Oral cavity: No recent ulcerations, bleeding, oral cavity discomfort. Neck: No recent acute neck pain reported. Hematologic: No recent easy bruising or bleeding. Lymphatic: No recent lymph node enlargement reported. Cardiovascular system review: See history of present illness. Respiratory system review: No hemoptysis or blood clots in the lungs reported. Mild Shortness of breath on exertion Gastrointestinal system review: Negative for any recent acute hematemesis, melena. Genitourinary system review: No recent acute or chronic hematuria, flank pain, UTI etc. reported. Skin system review: Negative for any recent abnormal bruising, no rash, no pruritus reported. Neurologic: No prior history of strokes, mini strokes, seizure disorder. Psychologic: No history of major psychosis or major depression reported. Musculoskeletal: Minor aches and pains reported. No acute joint swelling reported. Endocrine: No recent polyuria, polydipsia, recent heat or cold intolerance. Describes history of thyroid nodule. Physical Exam Vital Signs: Temp Pulse Resp BP Pulse Ox 98.2 F 94 17 132/75 H 99 06/14/18 19:50 06/14/18 19:50 06/14/18 19:50 06/14/18 19:50 06/14/18 19:50 Intake & Output 06/13/18 06/14/18 06/15/18 06:59 06:59 06:59 Intake Total 200 644 Balance 200 644 Weight 96.5 kg Exam: GENERAL: well-nourished and in no acute distress. Alert and oriented x3 HEAD: Atraumatic, normocephalic. EYES: Pupils equal round and reactive to light, extraocular movements intact, sclera anicteric, conjunctiva are normal. ENT: TMs normal, nares patent, oropharynx clear without exudates. Moist mucous membranes. No oral ulcerations or bleeding gums noted NECK: supple without lymphadenopathy. Trachea is central. No cervical or axillary lymphadenopathy noted. Carotids are 2+, JVD WNL LUNGS: Respiration seems nonlabored, no significant accessory muscle action noted. Breath sounds clear to auscultation bilaterally and equal noted. No wheezes rales or rhonchi noted. No significant dullness noted on percussion. CHEST: Palpation of the chest wall shows slight chest wall tenderness. HEART: Edgar [employer], No PSH, 1/6 YAS aortic area, 1/6 harrison systolic murmur mitral area, no rubs, no gallops. ABDOMEN: Soft, no significant tenderness appreciated, normoactive bowel sounds. No guarding, no rebound. No rigidity noted . No masses appreciated. EXTREMITIES: Pedal pulses are 1-2+, no calf tenderness noted. No clubbing or cyanosis. negative pedal edema noted NEUROLOGICAL: Focused neurological exam showed no significant neurologic deficit. Normal speech, no focal weakness appreciated. PSYCH: Normal mood, normal affect. Judgment and insight within normal limits. SKIN: No significant ecchymosis, skin is noted to be warm. MUSCULOSKELETAL EXAM: No significant acute joint swelling noted. Results Laboratory Results: 06/14/18 06:15 06/14/18 06:15 06/14/18 06/14/18 06/14/18 06:15 06:15 06:15 WBC 5.6 RBC 4.49 Hgb 13.4 Hct 39.3 MCV 88 MCH 29.8 MCHC 34.1 RDW 13.0 Plt Count 325 Seg Neutrophils % 49.0 Lymphocytes % 42.2 Monocytes % 6.1 Eosinophils % 1.8 Basophils % 0.9 Absolute Neutrophils 2.8 Absolute Lymphocytes 2.4 Absolute Monocytes 0.3 Absolute Eosinophils 0.1 Absolute Basophils 0.1 Sodium 143.5 Potassium 3.8 Chloride 111 H Carbon Dioxide 22 Anion Gap 11 BUN 8 Creatinine 0.61 Est GFR ( Amer) > 60 Est GFR (Non-Af Amer) > 60 Glucose 90 Calcium 9.2 Phosphorus 3.6 Magnesium 2.4 H Total Bilirubin 0.5 GGT 23 AST 13 L ALT 26 Alkaline Phosphatase 83 C-Reactive Protein 11.4 H Total Protein 6.6 Albumin 3.7 Triglycerides 84 Cholesterol 162.67 LDL Cholesterol Direct 98 VLDL Cholesterol 17.0 HDL Cholesterol 38 L Amylase 50 Lipase 197.8 Stool Occult Blood 06/14/18 19:50 WBC RBC Hgb Hct MCV MCH MCHC RDW Plt Count Seg Neutrophils % Lymphocytes % Monocytes % Eosinophils % Basophils % Absolute Neutrophils Absolute Lymphocytes Absolute Monocytes Absolute Eosinophils Absolute Basophils Sodium Potassium Chloride Carbon Dioxide Anion Gap BUN Creatinine Est GFR ( Amer) Est GFR (Non-Af Amer) Glucose Calcium Phosphorus Magnesium Total Bilirubin GGT AST ALT Alkaline Phosphatase C-Reactive Protein Total Protein Albumin Triglycerides Cholesterol LDL Cholesterol Direct VLDL Cholesterol HDL Cholesterol Amylase Lipase Stool Occult Blood NEGATIVE 06/13/18 06/13/18 06/13/18 12:04 12:04 12:04 Creatine Kinase 91 CK-MB (CK-2) < 0.22 Troponin I < 0.012 06/13/18 06/13/18 06/14/18 17:55 17:55 00:17 Creatine Kinase 92 78 CK-MB (CK-2) < 0.22 Troponin I 06/14/18 06/14/18 00:17 00:17 Creatine Kinase CK-MB (CK-2) < 0.22 Troponin I < 0.012 EKG Comments: Shows sinus rhythm with minor nonspecific T-wave changes Impressions: Thyroid Ultrasound 06/13/18 00:00 IMPRESSION: NORMAL THYROID ULTRASOUND. Chest X-Ray 06/13/18 07:48 IMPRESSION: NO ACUTE RADIOGRAPHIC FINDING IN THE CHEST. Chest/Abdomen CTA 06/14/18 00:00 IMPRESSION: NORMAL CTA OF THE CHEST. NO PULMONARY EMBOLI. Assessment & Plan - Diagnosis (1) Chest pain Qualifiers: Chest pain type: unspecified Qualified Code(s): R07.9 - Chest pain, unspecified Is this a current diagnosis for this admission?: Yes (2) HTN (hypertension) Qualifiers: Hypertension type: essential hypertension Qualified Code(s): I10 - Essential (primary) hypertension Is this a current diagnosis for this admission?: Yes (3) Obstructive sleep apnea Is this a current diagnosis for this admission?: Yes (4) LVH (left ventricular hypertrophy) Is this a current diagnosis for this admission?: Yes (5) Obesity Qualifiers: Obesity type: unspecified obesity type Obesity classification: unspecified obesity classification Is this a current diagnosis for this admission?: Yes (6) Thyromegaly Is this a current diagnosis for this admission?: Yes - Notes Notes: NST negative. Agree with CTA Chest pain: I was asked to evaluate patient after stress test because she had some chest discomfort. However chest discomfort is felt to be atypical and most likely noncardiac. Did request a CT chest to rule out other causes of chest pain. Chest pain most likely musculoskeletal. So far cardiac enzymes has been negative and EKGs have been unremarkable. A 2D echocardiogram which was obtained was also reviewed. It showed normal LVEF. If CTA chest did not show significant coronary calcification and is negative for other serious causes of chest pain then patient could be discharged on the medical management regimen with close cardiology follow-up. This was explained to the hospitalist. Hypertension: Reasonably well controlled. Blood pressure goal in this patient is 135/85 or less. This was discussed with the patient. Currently blood pressure under reasonable control. Better medication for this patient are YARIEL inhibitor/ARB/beta angus etc. discussed side effects of uncontrolled hypertension and also severe hypotension. LVH: Discussed various causes of LVH with the patient. This could include obesity, sleep apnea syndrome, hypertension. Advised patient his weight loss, regular walking program etc. Sleep apnea syndrome: Discussed that she would benefit from compliance with CPAP therapy. Also discussed importance of weight loss. Obesity: Recent advised in weight loss. In this regard portion control, calorie restriction, regular exercise program discussed.. - Time Time Spent: 30 to 50 Minutes - More than 50% of the time spent coordinating care , discussing management plans with involved caregivers. Management plans discussed with involved personnels. Medical decision making was of moderate to high complexity, patient's has multiple comorbidities. Medications reviewed and adjusted accordingly: Yes
--- NOTE | 2018-06-14 23:32 | EKG REPORT ---
SEVERITY:- BORDERLINE ECG - SINUS RHYTHM BORDERLINE T ABNORMALITIES, INFERIOR LEADS : Confirmed by: Katy Huber MD 14-Jun-2018 23:31:24
--- NOTE | 2018-06-15 00:03 | PDOC PROGRESS REPORT ---
Subjective Progress Note for:: 06/14/18 Subjective:: Patient admitted with complaints of chest pain. Patient is status post a negative Cardiolite. Cardiology was consulted today due to ongoing complaints of chest pain. Patient denies any reflux symptoms any cough at night, any shortness of breath, any recent nausea or vomiting. She states that she does have a history of asthma we will start patient on nebulizer and inhalers. Also started on empiric GI therapy for possible GERD variant asthma and reflux or hiatal hernia. Discussed with cardiology Dr. Espinoza was consulted who reports that he does not feel this is cardiogenic chest pain. States that we will do seem to to identify any coronary calcifications to stratify the patient need for further testing. Reason For Visit: CHEST PAIN Physical Exam Vital Signs: Temp Pulse Resp BP Pulse Ox 98.2 F 94 17 132/75 H 99 06/14/18 19:50 06/14/18 19:50 06/14/18 19:50 06/14/18 19:50 06/14/18 19:50 Intake & Output 06/13/18 06/14/18 06/15/18 06:59 06:59 06:59 Intake Total 200 644 Balance 200 644 Weight 212 lb 11.937 oz General appearance: PRESENT: no acute distress, cooperative, morbidly obese Eye exam: PRESENT: EOMI Ear exam: PRESENT: normal external ear exam Respiratory exam: PRESENT: clear to auscultation marbella Cardiovascular exam: PRESENT: RRR GI/Abdominal exam: PRESENT: normal bowel sounds, soft, other - Patient declines a digital rectal exam states that she will let us know when she has a bowel movement. ABSENT: distended, tenderness Results Laboratory Results: 06/14/18 06:15 06/14/18 06:15 06/14/18 06/14/18 06/14/18 06:15 06:15 06:15 WBC 5.6 RBC 4.49 Hgb 13.4 Hct 39.3 MCV 88 MCH 29.8 MCHC 34.1 RDW 13.0 Plt Count 325 Seg Neutrophils % 49.0 Lymphocytes % 42.2 Monocytes % 6.1 Eosinophils % 1.8 Basophils % 0.9 Absolute Neutrophils 2.8 Absolute Lymphocytes 2.4 Absolute Monocytes 0.3 Absolute Eosinophils 0.1 Absolute Basophils 0.1 Sodium 143.5 Potassium 3.8 Chloride 111 H Carbon Dioxide 22 Anion Gap 11 BUN 8 Creatinine 0.61 Est GFR ( Amer) > 60 Est GFR (Non-Af Amer) > 60 Glucose 90 Calcium 9.2 Phosphorus 3.6 Magnesium 2.4 H Total Bilirubin 0.5 GGT 23 AST 13 L ALT 26 Alkaline Phosphatase 83 C-Reactive Protein 11.4 H Total Protein 6.6 Albumin 3.7 Triglycerides 84 Cholesterol 162.67 LDL Cholesterol Direct 98 VLDL Cholesterol 17.0 HDL Cholesterol 38 L Amylase 50 Lipase 197.8 Stool Occult Blood 06/14/18 19:50 WBC RBC Hgb Hct MCV MCH MCHC RDW Plt Count Seg Neutrophils % Lymphocytes % Monocytes % Eosinophils % Basophils % Absolute Neutrophils Absolute Lymphocytes Absolute Monocytes Absolute Eosinophils Absolute Basophils Sodium Potassium Chloride Carbon Dioxide Anion Gap BUN Creatinine Est GFR ( Amer) Est GFR (Non-Af Amer) Glucose Calcium Phosphorus Magnesium Total Bilirubin GGT AST ALT Alkaline Phosphatase C-Reactive Protein Total Protein Albumin Triglycerides Cholesterol LDL Cholesterol Direct VLDL Cholesterol HDL Cholesterol Amylase Lipase Stool Occult Blood NEGATIVE 06/13/18 06/13/18 06/13/18 12:04 12:04 12:04 Creatine Kinase 91 CK-MB (CK-2) < 0.22 Troponin I < 0.012 06/13/18 06/13/18 06/14/18 17:55 17:55 00:17 Creatine Kinase 92 78 CK-MB (CK-2) < 0.22 Troponin I 06/14/18 06/14/18 00:17 00:17 Creatine Kinase CK-MB (CK-2) < 0.22 Troponin I < 0.012 Impressions: Thyroid Ultrasound 06/13/18 00:00 IMPRESSION: NORMAL THYROID ULTRASOUND. Chest X-Ray 06/13/18 07:48 IMPRESSION: NO ACUTE RADIOGRAPHIC FINDING IN THE CHEST. Chest/Abdomen CTA 06/14/18 00:00 IMPRESSION: NORMAL CTA OF THE CHEST. NO PULMONARY EMBOLI. Assessment & Plan - Diagnosis (1) Chest pain Qualifiers: Chest pain type: unspecified Qualified Code(s): R07.9 - Chest pain, unspecified Is this a current diagnosis for this admission?: Yes Plan: Suspect chest pain etiology to poorly controlled hypertension and LVH. Patient is at high risk for coronary artery disease related chest pain we will therefore Schedule patient for nuclear stress test. We will also obtain records for her echocardiogram that was done by her primary care identifying her LVH. Patient continued on aspirin, statin, beta blockers when blood pressure allows we will cycle cardiac enzymes. EKG shows nonspecific T-wave changes in lead III otherwise negative. Cardiac enzymes are negative so far. Vitals are stable. pt to have a CTA today. (2) HTN (hypertension) Qualifiers: Hypertension type: essential hypertension Qualified Code(s): I10 - Essential (primary) hypertension Is this a current diagnosis for this admission?: Yes Plan: bp is controlled and continue following. consider low dose amlodipine or ACEI once echo results available. (3) LVH (left ventricular hypertrophy) Is this a current diagnosis for this admission?: Yes Plan: Attribute to poorly controlled primary hypertension however patient is also has obstructive sleep apnea. (4) Morbid obesity with BMI of 40.0-44.9, adult Is this a current diagnosis for this admission?: Yes Plan: Patient will be provided a nutrition consult. Patient states she has already made dietary modifications and lifestyle modifications. Patient is very receptive for improving her health and lifestyle. (5) Thyromegaly Is this a current diagnosis for this admission?: Yes Plan: thyroid usg is normal . (6) Heart palpitations Is this a current diagnosis for this admission?: Yes Plan: thyroid test ordered. (7) Obstructive sleep apnea Is this a current diagnosis for this admission?: Yes
[2018-06-15] MEDS: ALBUTEROL SULFATE 0.083% NEB 2.5 MG/3 ML AMPUL NEB SCH ×3 (01:37→13:47)
[2018-06-15] MEDS: PANTOPRAZOLE SODIUM 40 MG VIAL IV SCH (06:19)
--- NOTE | 2018-06-15 10:59 | XCELERA REPORT ---
[address] [address] Transthoracic Echocardiogram Report Name: LEONEL TIJERINA Age: 38 yrs Gender: Female : 1980 Patient Status: Inpatient [facility] Study Date: 06/14/2018 06:51 PM Height: 62 in Weight: 212 lb BSA: 2.0 m2 Procedure: A complete two-dimensional transthoracic echocardiogram was performed (2D, M-mode, spectral and color flow Doppler). The study was technically adequate with some images being suboptimal in quality. Reason For Study: constant chest pain Ordering Physician: VALARIE LARA Performed By: VINITA Interpretation Summary The left ventricular ejection fraction is normal. There is mild concentric left ventricular hypertrophy. The left ventricle is grossly normal size. Doppler measurements suggest pseudonormalized left ventricular relaxation, which is associated with grade II/IV or mild to moderate diastolic dysfunction Wall motion cannot be accurately commented on, but no definite regional wall motion abnormalities noted. The right ventricular systolic function is normal. The right atrium is normal. The left atrial size is normal. There is no mitral regurgitation noted. There is no mitral valve stenosis. There is no aortic valve stenosis No aortic regurgitation is present. There is a trace or physiologic amount of tricuspid regurgitation Tricuspid regurgitation jet envelope not well defined to measure RV systolic pressure accurately. The aortic root is not well visualized but is probably normal size. The inferior vena cava was not visualized Minimal pericardial effusion. MMode/2D Measurements & Calculations RVDd: 2.2 cm LVIDd: 4.5 cm FS: 35.3 % LA dimension: 2.9 cm IVSd: 1.0 cm LVIDs: 2.9 cm EDV(Teich): 91.8 ml LVPWd: 0.98 cm ESV(Teich): 32.3 ml EF(Teich): 64.8 % LVOT diam: 1.9 cm LVOT area: 2.8 cm2 Doppler Measurements & Calculations MV E max marissa: MV P1/2t max marissa: Ao V2 max: LV V1 max P.0 cm/sec 107.9 cm/sec 121.9 cm/sec 2.9 mmHg MV A max marissa: MV P1/2t: 72.2 msec Ao max P.9 mmHg LV V1 max: 66.4 cm/sec MVA(P1/2t): 3.0 cm2 KEIRY(V,D): 1.9 cm2 84.5 cm/sec MV E/A: 1.2 MV dec slope: 437.8 cm/sec2 MV dec time: 0.25 sec PA V2 max: TR max marissa: MV P1/2t-pr_phl: 81.4 cm/sec 183.4 cm/sec 72.2 msec PA max PG: TR max P.5 mmHg 2.7 mmHg Left Ventricle The left ventricle is grossly normal size. There is mild concentric left ventricular hypertrophy. The left ventricular ejection fraction is normal. Doppler measurements suggest pseudonormalized left ventricular relaxation, which is associated with grade II/IV or mild to moderate diastolic dysfunction. Wall motion cannot be accurately commented on, but no definite regional wall motion abnormalities noted. Right Ventricle The right ventricle is grossly normal size. There is normal right ventricular wall thickness. The right ventricular systolic function is normal. Atria The right atrium is normal. The left atrial size is normal. Interarterial septum not well visualized and not well dopplered. Cannot comment on ASD/PFO presence. Mitral Valve The mitral valve is grossly normal. There is no mitral valve stenosis. There is no mitral regurgitation noted. Aortic Valve The aortic valve is grossly normal. There is no aortic valve stenosis. No aortic regurgitation is present. Tricuspid Valve The tricuspid valve is not well visualized, but is grossly normal. There is no tricuspid stenosis. There is a trace or physiologic amount of tricuspid regurgitation. Tricuspid regurgitation jet envelope not well defined to measure RV systolic pressure accurately. Pulmonic Valve The pulmonic valve is not well visualized. Great Vessels The aortic root is not well visualized but is probably normal size. The inferior vena cava was not visualized. Effusions Minimal pericardial effusion. : VALARIE LARA > Rita Espinoza
[2018-06-15 11:27] LABS: ABSOLUTE BASOPHILS # (AUTO) 0.1 10^3/uL (0.0-0.2); ABSOLUTE LYMPHOCYTES (AUTO) 2.4 10^3/uL (0.5-4.7); ABSOLUTE MONOCYTES (AUTO) 0.3 10^3/uL (0.1-1.4); ABSOLUTE NEUT (AUTO) 3.2 10^3/uL (1.7-8.2); EOSINOPHILS % (AUTO) 0.6 % (0-6); HEMATOCRIT 38.8 % (36.0-47.0); HEMOGLOBIN 13.1 g/dL (12.0-15.5); MEAN CORPUSCULAR HEMOGLOBIN 29.6 pg (27.0-33.4); MEAN CORPUSCULAR HGB CONC 33.8 g/dL (32.0-36.0); MEAN CORPUSCULAR VOLUME 88 fl (80-97); MONOCYTES % (AUTO) 5.3 % (3-13); PLATELET COUNT 338 10^3/uL (150-450); RED BLOOD COUNT 4.43 10^6/uL (3.72-5.28); RED CELL DISTRIBUTION WIDTH 12.8 % (11.5-14.0); SEGMENTED NEUTROPHILS % (AUTO) 53.1 % (42-78); TOTAL CELLS COUNTED % (AUTO) 100 %; WHITE BLOOD COUNT 6.1 10^3/uL (4.0-10.5)
[2018-06-15 11:54] LABS: ALANINE AMINOTRANSFERASE 22 U/L (9-52); ALBUMIN 3.8 g/dL (3.5-5.0); ALKALINE PHOSPHATASE 75 U/L (38-126); ANION GAP 15 (5-19); ASPARTATE AMINO TRANSFERASE 12 U/L (14-36); BILIRUBIN,DIRECT 0.2 mg/dL (0.0-0.4); BILIRUBIN,TOTAL 0.2 mg/dL (0.2-1.3); BLOOD UREA NITROGEN 7 mg/dL (7-20); CALCIUM 9.4 mg/dL (8.4-10.2); CARBON DIOXIDE 20 mmol/L (22-30); CHLORIDE 109 mmol/L (98-107); GLUCOSE 139 mg/dL (75-110); POTASSIUM 3.4 mmol/L (3.6-5.0); SODIUM 143.6 mmol/L (137-145); TOTAL PROTEIN 6.7 g/dL (6.3-8.2)
--- NOTE | 2018-06-15 12:15 | PDOC DISCHARGE SUMMARY ---
General - Admit/Disc Date/PCP Admission Date/Primary Care Provider: 06/13/18 10:51 ERLIN SAAVEDRA MD Discharge Date: 06/15/18 - Discharge Diagnosis (1) Chest pain Is this a current diagnosis for this admission?: Yes Summary: Status post negative Cardiolite stress test done by Dr. Espinoza. Negative CT angiogram. Continue nebulizer as there is improvement in chest pain and chest tightness with inhalers. Discussed with patient to follow-up with her outpatient physician for referral to care transitions nurse for atypical chest pain, also to continue using her nebulizers and inhalers for her asthma. Patient also to get a referral to an gastrointestinal technician through her primary for outpatient evaluation for possible allergy and asthma valuation and management. (2) HTN (hypertension) Is this a current diagnosis for this admission?: Yes Summary: Patient to be discharged on low-dose medication for hypertension. We will resume her home medications. (3) LVH (left ventricular hypertrophy) Is this a current diagnosis for this admission?: Yes Summary: Aggressive blood pressure control follow-up with Dr. Espinoza on an outpatient basis on a regular basis. Low-sodium diet and weight loss. (4) Morbid obesity with BMI of 40.0-44.9, adult Is this a current diagnosis for this admission?: Yes Summary: Patient about her weight and the related complications. (5) Thyromegaly Is this a current diagnosis for this admission?: Yes (6) Heart palpitations Is this a current diagnosis for this admission?: Yes Summary: Resolved (7) Obstructive sleep apnea Is this a current diagnosis for this admission?: Yes Summary: Advised patient to continue using her CPAP. - Additional Information Resuscitation Status: Full Code Home Medications: Albuterol Sulfate [Proair Hfa Inhalation Aerosol 8.5 gm Mdi] 1 puff IH Q4 PRN Gabapentin [Neurontin 300 mg Capsule] 300 mg PO QHS 06/13/18 Hydrochlorothiazide 12.5 mg PO DAILY 06/13/18 History of Present Illness History of Present Illness: LEONEL TIJERINA is a 38 year old female brought to the ER with complaints of 4 out of 10, nonradiating, midsternal chest pain that started past 2 days and worse last night. Patient then decided to have this evaluated as patient was having the symptoms overall for the past 2 days. Patient states that she was at work past 2 days and had been having palpitations. Patient states when she decided to come to the emergency room and she drove herself her chest pain was again midsternal nonradiating 4 out of 10. The max the chest pain has been as a 4 out of 10 it is intermittent. Chest pain description per patient patient denies any nausea vomiting coughing orthopnea shortness of breath dyspnea on exertion. Patient does have a long recent trip where she drove herself to [place] which is about 6 hours to and fro. However d-dimer is negative. Patient states that she recently found out through her primary that she has hypertension and was started on hydrochlorothiazide. Patient also had an echocardiogram done which showed she has left ventricular hypertrophy. Patient also had a recent sleep study which shows that she has sleep apnea and currently is awaiting a CPAP titration study for settings for CPAP. Patient currently denies any chest pain shortness of breath headache blurred vision nausea vomiting or any acute complaints. Patient has neck swelling in the thyroid area and thyroid gland feels firm and enlarged will go ahead and proceed with ultrasound of the thyroid gland. Hospital Course Hospital Course: The obese 38-year-old female admitted with and rule out AR. Patient has been having intermittent chest pain. Patient denied any diaphoresis or any associated symptoms of the chest discomfort. Patient does note that she has LVH and recently diagnosed sleep apnea. During hospital stay patient has had a negative Cardiolite study, negative CT angiogram. Echo report is still pending. Discussed with patient about this atypical chest pain might be asthma presentation from her allergies, Also discussed with patient that this could also be related to GERD variant asthma or hiatal hernia or reflux esophagitis. Informed patient that she should consider using her neb inhaler 2 times a day on a regular basis every 12 hours for the next 4-6 weeks. We will await echo report discussed with cardiology if appropriate will discharge the patient today. Physical Exam Vital Signs: Temp Pulse Resp BP Pulse Ox 98.6 F 115 H 17 110/64 99 06/15/18 03:53 06/15/18 07:00 06/15/18 03:53 06/15/18 03:53 06/15/18 03:53 Intake & Output 06/14/18 06/15/18 06/16/18 06:59 06:59 06:59 Intake Total 200 1512 Balance 200 1512 Weight 212 lb 11.937 oz 217 lb 2.485 oz General appearance: PRESENT: no acute distress, cooperative, morbidly obese Head exam: PRESENT: atraumatic, normocephalic Eye exam: PRESENT: EOMI Ear exam: PRESENT: normal external ear exam Respiratory exam: PRESENT: clear to auscultation marbella Cardiovascular exam: PRESENT: RRR GI/Abdominal exam: PRESENT: soft. ABSENT: distended, tenderness Neurological exam: PRESENT: alert, awake, CN II-XII grossly intact Results Laboratory Results: 06/14/18 06:15 06/14/18 06:15 06/14/18 06/14/18 06:15 19:50 GGT 23 C-Reactive Protein 11.4 H Amylase 50 Lipase 197.8 Stool Occult Blood NEGATIVE 06/13/18 06/13/18 06/13/18 12:04 12:04 12:04 Creatine Kinase 91 CK-MB (CK-2) < 0.22 Troponin I < 0.012 06/13/18 06/13/18 06/14/18 17:55 17:55 00:17 Creatine Kinase 92 78 CK-MB (CK-2) < 0.22 Troponin I 06/14/18 06/14/18 00:17 00:17 Creatine Kinase CK-MB (CK-2) < 0.22 Troponin I < 0.012 Impressions: Thyroid Ultrasound 06/13/18 00:00 IMPRESSION: NORMAL THYROID ULTRASOUND. Chest X-Ray 06/13/18 07:48 IMPRESSION: NO ACUTE RADIOGRAPHIC FINDING IN THE CHEST. Chest/Abdomen CTA 06/14/18 00:00 IMPRESSION: NORMAL CTA OF THE CHEST. NO PULMONARY EMBOLI. Qualifiers - * PATIENT BEING DISCHARGED WITH ANY OF THE FOLLOWING DIAGNOSIS: No
[2018-06-15 14:41] VITALS: BP 117/71
[2018-06-15] MEDS: SUCRALFATE SUSP 1 GM/10 ML UDCUP PO SCH ×2 (15:04→15:05)
[2018-06-15] MEDS: ASPIRIN 325 MG TABLET, ENT COATED PO SCH (15:05)
--- NOTE | 2018-06-15 19:42 | PDOC PROGRESS REPORT ---
Subjective Progress Note for:: 06/15/18 Subjective:: Patient seems to be doing better. Pt is denying any chest arm or neck discomfort. Patient denying any PND, orthopnea. Patient denied any sustained palpitations, dizziness, syncope, near syncope. Patient denying any fever chills. Patient denying any other significant discomfort. Patient is maintaining sinus rhythm. Review of systems: Rest review of systems negative. Medications: Medications have been reviewed. Reason For Visit: CHEST PAIN Physical Exam Vital Signs: Temp Pulse Resp BP Pulse Ox 98.5 F 80 14 117/71 98 06/15/18 14:21 06/15/18 14:21 06/15/18 14:21 06/15/18 14:21 06/15/18 14:21 Intake & Output 06/14/18 06/15/18 06/16/18 06:59 06:59 06:59 Intake Total 200 1512 Balance 200 1512 Weight 96.5 kg 98.5 kg Exam: GENERAL: well-nourished and in no acute distress. Alert and oriented x3 HEAD: Atraumatic, normocephalic. EYES: Pupils equal round and reactive to light, extraocular movements intact, sclera anicteric, conjunctiva are normal. ENT: TMs normal, nares patent, oropharynx clear without exudates. Moist mucous membranes. No oral ulcerations or bleeding gums noted NECK: supple without lymphadenopathy. Trachea is central. No cervical or axillary lymphadenopathy noted. Carotids are 2+, JVD WNL LUNGS: Respiration seems nonlabored, no significant accessory muscle action noted. Breath sounds clear to auscultation bilaterally and equal noted. No wheezes rales or rhonchi noted. No significant dullness noted on percussion. CHEST: Palpation of the chest wall shows slight diffuse left-sided chest wall tenderness. HEART: [place] [employer], No PSH, 1/6 YAS aortic area, 1/6 harrison systolic murmur mitral area, no rubs, no gallops. ABDOMEN: Soft, no significant tenderness appreciated, normoactive bowel sounds. No guarding, no rebound. No rigidity noted . No masses appreciated. EXTREMITIES: Pedal pulses are 1-2+, no calf tenderness noted. No clubbing or cyanosis. negative pedal edema noted NEUROLOGICAL: Focused neurological exam showed no significant neurologic deficit. Normal speech, no focal weakness appreciated. PSYCH: Normal mood, normal affect. Judgment and insight within normal limits. SKIN: No significant ecchymosis, skin is noted to be warm. MUSCULOSKELETAL EXAM: No significant acute joint swelling noted. Results Laboratory Results: 06/15/18 11:00 06/15/18 11:00 06/14/18 06/15/18 06/15/18 19:50 11:00 11:00 WBC 6.1 RBC 4.43 Hgb 13.1 Hct 38.8 MCV 88 MCH 29.6 MCHC 33.8 RDW 12.8 Plt Count 338 Seg Neutrophils % 53.1 Lymphocytes % 40.0 Monocytes % 5.3 Eosinophils % 0.6 Basophils % 1.0 Absolute Neutrophils 3.2 Absolute Lymphocytes 2.4 Absolute Monocytes 0.3 Absolute Eosinophils 0.0 Absolute Basophils 0.1 Sodium 143.6 Potassium 3.4 L Chloride 109 H Carbon Dioxide 20 L Anion Gap 15 BUN 7 Creatinine 0.64 Est GFR ( Amer) > 60 Est GFR (Non-Af Amer) > 60 Glucose 139 H Calcium 9.4 Total Bilirubin 0.2 AST 12 L ALT 22 Alkaline Phosphatase 75 Total Protein 6.7 Albumin 3.8 Stool Occult Blood NEGATIVE 06/13/18 06/13/18 06/13/18 12:04 12:04 12:04 Creatine Kinase 91 CK-MB (CK-2) < 0.22 Troponin I < 0.012 06/13/18 06/13/18 06/14/18 17:55 17:55 00:17 Creatine Kinase 92 78 CK-MB (CK-2) < 0.22 Troponin I 06/14/18 06/14/18 00:17 00:17 Creatine Kinase CK-MB (CK-2) < 0.22 Troponin I < 0.012 EKG Comments: Telemetry shows sinus rhythm without any sustained tachycardia or bradycardia. Impressions: Thyroid Ultrasound 06/13/18 00:00 IMPRESSION: NORMAL THYROID ULTRASOUND. Chest X-Ray 06/13/18 07:48 IMPRESSION: NO ACUTE RADIOGRAPHIC FINDING IN THE CHEST. Chest/Abdomen CTA 06/14/18 00:00 IMPRESSION: NORMAL CTA OF THE CHEST. NO PULMONARY EMBOLI. Assessment & Plan - Diagnosis (1) Chest pain Qualifiers: Chest pain type: unspecified Qualified Code(s): R07.9 - Chest pain, unspecified Is this a current diagnosis for this admission?: Yes (2) HTN (hypertension) Qualifiers: Hypertension type: essential hypertension Qualified Code(s): I10 - Essential (primary) hypertension Is this a current diagnosis for this admission?: Yes (3) Obstructive sleep apnea Is this a current diagnosis for this admission?: Yes (4) Obesity Qualifiers: Obesity type: unspecified obesity type Obesity classification: unspecified obesity classification Is this a current diagnosis for this admission?: Yes (5) LVH (left ventricular hypertrophy) Is this a current diagnosis for this admission?: Yes (6) Thyromegaly Is this a current diagnosis for this admission?: Yes - Notes Notes: Chest pain: This was evaluated with a nuclear stress test and was felt to be a relatively low risk stress test. Based on this patient was advised medical management. Patient advised aggressive risk factor modification. Hypertension: Discussed blood pressure goal with the patient. It is felt to be 135/85 or less at her age. Obesity: Patient has been advised in weight loss. Obstructive sleep apnea: Patient discussed with that weight loss will help in improving severity of sleep apnea. Discussed that sleep apnea does increase risk of cardiovascular event risk. Patient understands that. LVH: 2D echo results were reviewed with the patient. She does have mild LVH. Discussed that sleep apnea can cause LVH as scanned obesity and hypertension. Good control of all these 3 factors were discussed. Patient was informed that certain medications might help LVH such as spironolactone, losartan etc. This changes could be instituted as an outpatient. - Time Time with patient: Greater than 35 minutes - Significant time spent discussing results of 2D echo, nuclear stress test, risk factor modification, weight management and management of sleep apnea. More than 50% of the time spent coordinating care, discussing management plans with involved caregivers. Management plans discussed with involved personnels. Medical decision making was of moderate to high complexity, patient's has multiple comorbidities. Medications reviewed and adjusted accordingly: Yes
== END 2018-06-15 15:30 | disposition home or self-care (01) ==
LOC: ER 07:27 → EH 10:51 → 5 19:48
PROVIDERS: ADMIT Internal Medicine; ATTEND Internal Medicine
DX: R07.89 Other chest pain (principal); I11.9 Hypertensive heart disease without heart failure; E66.01 Morbid (severe) obesity due to excess calories; E01.0 Iodine-deficiency related diffuse (endemic) goiter; R00.2 Palpitations; G47.33 Obstructive sleep apnea (adult) (pediatric); R06.02 Shortness of breath; Z68.41 Body mass index [BMI] 40.0-44.9, adult; Z79.899 Other long term (current) drug therapy; Z82.49 Family history of ischemic heart disease and other diseases of the circulatory system
CPT/HCPCS: 93005 ×2; 99285; 36415 ×3; 82553 ×2; 82150; 82550 ×2; 82977; 83690; 83735; 84100; 84703; 85025 ×3; 82272; 86140; 80053 ×3; 84484 ×2; 80307; 85379; 80061; 83880; 93306; 93017; 71045; 76536; 78452; 71275; 93010 ×2; 94640 ×4; G0378 ×3; A9500; J2785; S0164 ×2; J0706; J3490 ×3; Q9969

== ENCOUNTER 2018-07-30 21:20 | Emergency (ER) | payer OTHER ==
[2018-07-30] MEDS ORDERED: METHOCARBAMOL 500 MG TABLET PO ONE (22:56)
[2018-07-30] MEDS ORDERED: NAPROXEN 250 MG TABLET PO ONE (22:57)
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
[2018-07-30 23:24] VITALS: BP 120/81
== END 2018-07-30 23:30 | disposition home or self-care (01) ==
LOC: ER 21:20
DX: R51 Headache (principal); M54.2 Cervicalgia; V89.2XXA Person injured in unspecified motor-vehicle accident, traffic, initial encounter
CPT/HCPCS: 99283

== ENCOUNTER 2018-09-10 10:16 | Emergency (ER) | payer OTHER ==
[2018-09-10] MEDS ORDERED: FAMOTIDINE INJ/PF 20 MG/2 ML SDV IV ONE (10:36)
[2018-09-10] MEDS ORDERED: METHYLPREDNISOLONE INJ 125 MG/2 ML SDV IV ONE (10:36)
[2018-09-10] MEDS ORDERED: DIPHENHYDRAMINE HCL 50 MG/ML VIAL IV ONE (10:37)
--- NOTE | 2018-09-10 10:38 | ER Document Report ---
ED Medical Screen (RME) - General Chief Complaint: Breast Problem Stated Complaint: BREAST PAIN / SWELLING Time Seen by Provider: 09/10/18 10:29 Mode of Arrival: Ambulatory Information source: Patient Notes: 38-year-old female presents emergency department complaints of hives that started yesterday. Patient she denies any new foods, detergent, lotion, soap, clothing, medication. Patient is unsure what is causing her allergic reaction. She states that she did take Benadryl yesterday. She states that this helped with the pruritus but the hives never completely resolved. She denies any difficulty breathing, difficulty swallowing, chest pain, shortness of breath. Patient also stating that she is having pain to her left breast. She describes that as an aching/full sensation. I have greeted and performed a rapid initial assessment of this patient. A comprehensive ED assessment and evaluation of the patient, analysis of test results and completion of the medical decision making process will be conducted by additional ED providers. PHYSICAL EXAMINATION: GENERAL: Well-appearing, well-nourished and in no acute distress. HEAD: Atraumatic, normocephalic. EYES: Pupils equal round extraocular movements intact, conjunctiva are normal. ENT: Nares patent NECK: Normal range of motion LUNGS: No respiratory distress Musculoskeletal: Normal range of motion NEUROLOGICAL: Normal speech, normal gait. PSYCH: Normal mood, normal affect. SKIN: hives on the upper extremities. TRAVEL OUTSIDE OF THE [place] IN LAST 30 DAYS: No - Related Data Allergies/Adverse Reactions: theophylline anhydrous [From [facility]] Allergy (Verified 09/10/18 10:18) Past Medical History - Past Medical History Cardiac Medical History: Reports: Hx Hypertension - Diastolic Pulmonary Medical History: Reports: Hx Asthma Endocrine Medical History: Denies: Hx Diabetes Mellitus Type 2 Renal/ Medical History: Denies: Hx Peritoneal Dialysis Past Surgical History: Reports: Hx Urinary Tract Surgery - Immunizations Hx Diphtheria, Pertussis, Tetanus Vaccination: Yes History of Influenza Vaccine for 08/2017 - 01/2018 Season: Yes Influenza Administration Date for 08/2017 - 01/2018 Season: 08/06/17 Physical Exam - Vital signs Vitals: Temp Pulse Resp BP Pulse Ox 99.0 F 99 14 116/68 97 09/10/18 10:22 09/10/18 10:22 09/10/18 10:22 09/10/18 10:22 09/10/18 10:22 Course - Vital Signs Vital signs: Temp Pulse Resp BP Pulse Ox 99.0 F 99 14 116/68 97 09/10/18 10:22 09/10/18 10:22 09/10/18 10:22 09/10/18 10:22 09/10/18 10:22 Doctor's Discharge - Discharge Referrals: ERLIN SAAVEDRA MD [Primary Care Provider] - Follow up as needed
--- NOTE | 2018-09-10 11:17 | ER Document Report ---
ED Breast Problem - General Chief Complaint: Breast Problem Stated Complaint: BREAST PAIN / SWELLING Time Seen by Provider: 09/10/18 10:29 Mode of Arrival: Ambulatory TRAVEL OUTSIDE OF THE [place] IN LAST 30 DAYS: No - HPI Patient complains to provider of: Other - This is an obese 38-year-old female that presents for evaluation of itchy hives which have developed over the last 2 days. She has been staying on the couch at her family's, she notes that the hives seemed to grow since yesterday so she took some Benadryl today which helped some with the itching but did not make it entirely go away so she presented for further evaluation she denies any known exposure to insects a history of bruising in the past. No recent antibiotic use, no oral lesions, no pain in the abdomen or other symptoms. - Related Data Allergies/Adverse Reactions: theophylline anhydrous [From Aramis-Dur] Allergy (Verified 09/10/18 10:18) Past Medical History - General Information source: Patient - Social History Smoking Status: Never Smoker Family History: DM, Hypertension, Other - Diabetes, CHF, Patient has suicidal ideation: No Patient has homicidal ideation: No - Past Medical History Cardiac Medical History: Reports: Hx Hypertension - Diastolic Pulmonary Medical History: Reports: Hx Asthma Endocrine Medical History: Denies: Hx Diabetes Mellitus Type 2 Renal/ Medical History: Denies: Hx Peritoneal Dialysis Past Surgical History: Reports: Hx Urinary Tract Surgery - Immunizations Hx Diphtheria, Pertussis, Tetanus Vaccination: Yes Hx Pneumococcal Vaccination: 05/06/18 Review of Systems - Review of Systems -: Yes All other systems reviewed and negative Physical Exam - Vital signs Vitals: Temp Pulse Resp BP Pulse Ox 99.0 F 99 14 116/68 97 09/10/18 10:22 09/10/18 10:22 09/10/18 10:22 09/10/18 10:22 09/10/18 10:22 - General General appearance: Appears well In distress: None - HEENT Head: Normocephalic, Atraumatic Eyes: Normal Pupils: PERRL - Respiratory Respiratory status: No respiratory distress Chest status: Nontender Breath sounds: Normal Chest palpation: Normal - Cardiovascular Rhythm: Regular Heart sounds: Normal auscultation Murmur: No - Abdominal Inspection: Normal Distension: No distension Bowel sounds: Normal Tenderness: Nontender Organomegaly: No organomegaly - Back Back: Normal, Nontender - Extremities General upper extremity: Normal inspection, Nontender, Normal color, Normal ROM , Normal temperature General lower extremity: Normal inspection, Nontender, Normal color, Normal ROM , Normal temperature, Normal weight bearing. No: Crystal's sign - Neurological Neuro grossly intact: Yes Cognition: Normal Orientation: AAOx4 Lori Coma Scale Eye Opening: Spontaneous [place] Coma Scale Verbal: Oriented [place] Coma Scale Motor: Obeys Commands Lori Coma Scale Total: 15 Speech: Normal Motor strength normal: LUE, RUE, LLE, RLE Sensory: Normal - Psychological Associated symptoms: Normal affect, Normal mood - Skin Skin irregularity: other - There is a single circular slightly terse erythematous lesion on the right forearm approximately 5 x 5 cm with a single punctate area consistent with a bite, There are 3 well-circumscribed erythematous slightly raised terse lesions with a single punctate central spot consistent with bite on the left upper extremity Course - Re-evaluation Re-evalutation: 09/10/18 19:47 38-year-old female who presents for evaluation of symptomatic urticaria. This could potentially be bites though she denies any exposure specifically she denies any potential for tick bites. She has no other obvious lesions. Because of her well appearance, her nondiagnostic exam will administer medications for reactive hives and encouraged to utilize [id number] medications similarly. After administration of antihistamines and steroids in emergency department patient did have symptomatic relief. Because of her well appearance we will plan for discharge as previously stated. She was given return precautions do not believe this represents a more serious underlying rash such as but not limited to TEN, SJS, cellulitis, pemphigus vulgaris. - Vital Signs Vital signs: Temp Pulse Resp BP Pulse Ox 99.0 F 99 14 116/68 97 09/10/18 10:22 09/10/18 10:22 09/10/18 10:22 09/10/18 10:22 09/10/18 10:22 Discharge - Discharge Clinical Impression: Hives Condition: Good Disposition: HOME, SELF-CARE Additional Instructions: You were seen today in the emergency department for your hives. These hives could potentially be related to bug bites, you should investigate and see if there are any bedbugs in the area you are sleeping. You can use cetirizine in the outpatient setting off the shelf to help treat your symptoms, you can take double the recommended dose twice daily to help with your symptoms. You can use topical steroids as well, as you are darker complexion he should be cautious in using steroid creams longer than 1 week as it could thin your skin and make it coil connector repairer in color. Return for worsening fevers or chills, pain that changes or swelling. Prescriptions: Cetirizine HCl [All Day Allergy] 10 mg PO BID #30 capsule Forms: Return to Work Referrals: ERLIN SAAVEDRA MD [Primary Care Provider] - Follow up as needed
[2018-09-10] MEDS ORDERED: HYDROCORTISONE 1% OINTMENT 28.35 GM TP SCH (13:15)
[2018-09-10] MEDS ORDERED: CETIRIZINE 10 MG TABLET PO ONE (13:16)
[2018-09-10 13:44] VITALS: BP 119/81
== END 2018-09-10 14:14 | disposition home or self-care (01) ==
LOC: ER 10:16
DX: L50.9 Urticaria, unspecified (principal); N64.4 Mastodynia; I10 Essential (primary) hypertension; J45.909 Unspecified asthma, uncomplicated
CPT/HCPCS: 99283; 96374; 96375; J1200; J3490; J2930; S0028

== ENCOUNTER 2019-11-12 15:02 | Emergency (ER) | payer BC, OTHER ==
[2019-11-12] MEDS ORDERED: ASPIRIN 81 MG TABLET, CHEWABLE PO ONE (15:24)
--- NOTE | 2019-11-12 15:27 | ER Document Report ---
ED Medical Screen (RME) - General Chief Complaint: Chest Pain Stated Complaint: SHORTNESS OF BREATH/CHEST PAIN Time Seen by Provider: 11/12/19 15:23 Primary Care Provider: ERLIN SAAVEDRA MD [Primary Care Provider] - Follow up as needed Mode of Arrival: Ambulatory Information source: Patient Notes: 39-year-old female presented to ED with chest pain to the center of her chest traveling through to her back. Denies any pain to her jaw or her arm. States she does have a little shortness of breath. She states she did not have any diaphoresis until her mother scared to tell me she had to come to the emergency room and that she did become sweaty. She states she drinks occasionally does not smoke or use any drugs. She does have LVH diagnosed a year and a half ago. 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 I have greeted and performed a rapid initial assessment of this patient. A comprehensive ED assessment and evaluation of the patient, analysis of test results and completion of medical decision making process will be conducted by an additional ED providers. TRAVEL OUTSIDE OF THE [place] IN LAST 30 DAYS: No - Related Data Allergies/Adverse Reactions: theophylline anhydrous [From Aramis-Dur] Allergy (Verified 11/12/19 15:23) Past Medical History - Past Medical History Cardiac Medical History: Reports: Hx Hypertension - Diastolic Pulmonary Medical History: Reports: Hx Asthma Endocrine Medical History: Denies: Hx Diabetes Mellitus Type 2 Renal/ Medical History: Denies: Hx Peritoneal Dialysis Past Surgical History: Reports: Hx Urinary Tract Surgery - Immunizations Hx Diphtheria, Pertussis, Tetanus Vaccination: Yes Physical Exam - Vital signs Vitals: Temp Pulse Resp BP Pulse Ox 98.6 F 75 20 140/67 H 97 11/12/19 15:22 11/12/19 15:22 11/12/19 15:22 11/12/19 15:22 11/12/19 15:22 Course - Vital Signs Vital signs: Temp Pulse Resp BP Pulse Ox 98.6 F 75 20 140/67 H 97 11/12/19 15:22 11/12/19 15:22 11/12/19 15:22 11/12/19 15:22 11/12/19 15:22 Doctor's Discharge - Discharge Referrals: ERLIN SAAVEDRA MD [Primary Care Provider] - Follow up as needed
[2019-11-12 15:56] LABS: APPEARANCE,URINE SLIGHTLY-CLOUDY; BILIRUBIN,URINE NEGATIVE (NEGATIVE); COLOR,URINE YELLOW; GLUCOSE, URINE NEGATIVE (NEGATIVE); KETONES,URINE NEGATIVE (NEGATIVE); PROTEIN,URINE NEGATIVE (NEGATIVE); URINE SPECIFIC GRAVITY 1.017; UROBILINOGEN,URINE NEGATIVE mg/dL (<2.0)
--- NOTE | 2019-11-12 15:56 | RADIOLOGY REPORT (SQ) ---
EXAM DESCRIPTION: CHEST 2 VIEWS COMPLETED DATE/TIME: 11/12/2019 3:47 pm REASON FOR STUDY: chest pain COMPARISON: 03/31/2017. EXAM PARAMETERS: NUMBER OF VIEWS: two views TECHNIQUE: Digital Frontal and Lateral radiographic views of the chest acquired. RADIATION DOSE: NA LIMITATIONS: none FINDINGS: LUNGS AND PLEURA: No opacities, masses or pneumothorax. No pleural effusion. MEDIASTINUM AND HILAR STRUCTURES: No masses or contour abnormalities. HEART AND VASCULAR STRUCTURES: Heart normal size. No evidence for failure. BONES: No acute findings. HARDWARE: None in the chest. OTHER: No other significant finding. IMPRESSION: NO ACUTE RADIOGRAPHIC FINDING IN THE CHEST. TECHNICAL DOCUMENTATION: JOB ID: [id number] [employer]- All Rights Reserved Reading location - IP/workstation name: [email or web address]
[2019-11-12 16:06] LABS: ABSOLUTE BASOPHILS # (AUTO) 0.1 10^3/uL (0.0-0.2); ABSOLUTE EOSINOPHILS # (AUTO) 0.1 10^3/uL (0.0-0.6); ABSOLUTE LYMPHOCYTES (AUTO) 3.8 10^3/uL (0.5-4.7); ABSOLUTE MONOCYTES (AUTO) 0.6 10^3/uL (0.1-1.4); ABSOLUTE NEUT (AUTO) 2.6 10^3/uL (1.7-8.2); BASOPHILS % (AUTO) 0.7 % (0-2); EOSINOPHILS % (AUTO) 1.6 % (0-6); HEMATOCRIT 39.6 % (36.0-47.0); HEMOGLOBIN 13.4 g/dL (12.0-15.5); LYMPHOCYTES % (AUTO) 52.2 % (13-45); MEAN CORPUSCULAR HEMOGLOBIN 30.5 pg (27.0-33.4); MEAN CORPUSCULAR HGB CONC 33.8 g/dL (32.0-36.0); MEAN CORPUSCULAR VOLUME 90 fl (80-97); MONOCYTES % (AUTO) 8.7 % (3-13); PLATELET COUNT 362 10^3/uL (150-450); RED BLOOD COUNT 4.39 10^6/uL (3.72-5.28); RED CELL DISTRIBUTION WIDTH 13.4 % (11.5-14.0); SEGMENTED NEUTROPHILS % (AUTO) 36.8 % (42-78); TOTAL CELLS COUNTED % (AUTO) 100 %; WHITE BLOOD COUNT 7.2 10^3/uL (4.0-10.5)
[2019-11-12 16:22] LABS: ALBUMIN 4.1 g/dL (3.5-5.0); ALKALINE PHOSPHATASE 75 U/L (38-126); ANION GAP 8 (5-19); ASPARTATE AMINO TRANSFERASE 16 U/L (14-36); BILIRUBIN,DIRECT 0.2 mg/dL (0.0-0.4); BILIRUBIN,TOTAL 0.3 mg/dL (0.2-1.3); BLOOD UREA NITROGEN 12 mg/dL (7-20); CALCIUM 9.9 mg/dL (8.4-10.2); CARBON DIOXIDE 27 mmol/L (22-30); CHLORIDE 106 mmol/L (98-107); GLUCOSE 76 mg/dL (75-110); POTASSIUM 4.2 mmol/L (3.6-5.0)
[2019-11-12 16:38] LABS: NT PRO BNP 78 pg/mL (<125)
[2019-11-12 16:40] LABS: TROPONIN I < 0.012 ng/mL
--- NOTE | 2019-11-12 17:07 | ER Document Report ---
ED General - General Chief Complaint: Chest Pain Stated Complaint: SHORTNESS OF BREATH/CHEST PAIN Time Seen by Provider: 11/12/19 15:23 Primary Care Provider: ERLIN SAAVEDRA MD [Primary Care Provider] - Follow up as needed Mode of Arrival: Ambulatory TRAVEL OUTSIDE OF THE [place] IN LAST 30 DAYS: No - HPI Notes: Patient is a 39-year-old female with a history of LVH and hypertension, under the care of cardiology/Dr. Morrison, who presents complaining of having right sided sternal chest pain that began last night and was intermittent throughout the night and then recurred again in the morning and lasted till this afternoon which has then resolved. - Related Data Allergies/Adverse Reactions: theophylline anhydrous [From Aramis-Dur] Allergy (Verified 11/12/19 15:23) Past Medical History - General Information source: Patient - Social History Smoking Status: Current Every Day Smoker Family History: DM, Hypertension, Other - Diabetes, CHF, Patient has suicidal ideation: No Patient has homicidal ideation: No - Past Medical History Cardiac Medical History: Reports: Hx Hypertension - Diastolic Pulmonary Medical History: Reports: Hx Asthma Endocrine Medical History: Denies: Hx Diabetes Mellitus Type 2 Renal/ Medical History: Denies: Hx Peritoneal Dialysis Past Surgical History: Reports: Hx Gynecologic Surgery - D&C, removed cyst off of ovary, Hx Urinary Tract Surgery - urethraplasty - Immunizations Hx Diphtheria, Pertussis, Tetanus Vaccination: Yes Hx Pneumococcal Vaccination: 05/06/18 Physical Exam - Vital signs Vitals: Temp Pulse Resp BP Pulse Ox 98.6 F 75 20 140/67 H 97 11/12/19 15:22 11/12/19 15:22 11/12/19 15:22 11/12/19 15:22 11/12/19 15:22 Course - Re-evaluation Re-evalutation: 11/12/19 19:19 Dr. Morrison is okay with discharge to home and can f/u in his office tomorrow. Patient is an afebrile, well-hydrated 39-year-old female who presents to the ED with atypical CP. Vitals are acceptable without any significant tachycardia, tachypnea, or hypoxia. PE is otherwise unremarkable. Patient is nontoxic- appearing and is tolerating p.o. without any difficulties. Pt is currently asymptomatic. CBC, CMP, EKG/cardiac enzymes 2, chest x-ray are all unremarkable for any acute pathology. Patient has a heart score of 1, Wells score of 0, and is PERC negative. Patient does not have any chest pain, dyspnea, or shortness of breath. Patient's presentation and symptomatology creates low suspicion for ACS, PE, pneumothorax, pericarditis, dissection, respiratory compromise, severe dehydration, sepsis, meningitis, or other systemic emergent condition at this time. Patient is aware that this condition can change from initial presentation and she needs to monitor symptoms closely and seek medical attention for any acute changes. Pt is feeling better and would like to go home. Recommend conservative measures for symptoms. Recheck with your PCM in 2-3 days. F/u with cardio as reviewed. Return to the ED with any worsening/concerning symptoms otherwise as reviewed in discharge. Patient is in agreement. - Vital Signs Vital signs: Temp Pulse Resp BP Pulse Ox 98.6 F 75 23 H 125/78 100 11/12/19 15:22 11/12/19 15:22 11/12/19 19:00 11/12/19 18:01 11/12/19 19:00 - Laboratory Result Diagrams: 11/12/19 15:35 11/12/19 15:35 Laboratory results interpreted by me: 11/12/19 11/12/19 15:35 15:35 Lymph % (Auto) 52.2 H Seg Neutrophils % 36.8 L Leukocyte Esterase Rfl TRACE H Discharge - Discharge Clinical Impression: Atypical chest pain Condition: Stable Disposition: HOME, SELF-CARE Instructions: Chest Pain of Unclear Cause ([facility]) Additional Instructions: Maintain adequate fluid and food intake Take home medications as directed Healthy diet Monitor blood pressure daily and keep a log Monitor symptoms for any acute changes Recheck with your PCM in 3-5 days Follow-up with Dr. Morrison tomorrow Return to the ED with any worsening symptoms and/or development of fever, headache, chest pain, palpitations, syncope, shortness of breath, trouble breathing, abdominal pain, n/v/d, blood in stool/urine, loss of control of bowel/bladder, urinary retention, muscle weakness/paralysis, numbness/tingling, or other worsening symptoms that are concerning to you. Referrals: ERLIN SAAVEDRA MD [Primary Care Provider] - Follow up as needed SIMONE MORRISON MD [ACTIVE STAFF] - Follow up tomorrow
[2019-11-12 19:34] VITALS: BP 143/84
--- NOTE | 2019-11-12 22:26 | EKG REPORT ---
SEVERITY:- NORMAL ECG - SINUS RHYTHM : Confirmed by: Rita Espinoza 12-Nov-2019 22:26:02
== END 2019-11-12 19:43 | disposition home or self-care (01) ==
LOC: ER 15:02
DX: R07.89 Other chest pain (principal); J45.909 Unspecified asthma, uncomplicated; I10 Essential (primary) hypertension; F17.200 Nicotine dependence, unspecified, uncomplicated; Z88.8 Allergy status to other drugs, medicaments and biological substances; Z82.49 Family history of ischemic heart disease and other diseases of the circulatory system
CPT/HCPCS: 36415; 71046; 80053; 81001; 83880; 84484; 84703; 85025; 87086; 93005; 93010; 99285